=== PATIENT | male | born 1950 | race Caucasian/White ===

== ENCOUNTER 2022-10-29 15:13 | Emergency (ER) | payer MEDICARE, OTHER, SELFPAY ==
--- NOTE | ~2022-10-29 | CT_ITS ---
EXAMINATION: CT HEAD WITHOUT CONTRAST CLINICAL INFORMATION: Right arm weakness. COMPARISON: None available. TECHNIQUE: Contiguous axial imaging was performed from the skull base to vertex without intravenous administration of contrast. This CT examination was performed using dose optimization techniques as appropriate, variously including the following: *Automated exposure control *Adjustment of mA and/or kV according to patient size (this includes techniques or standardized protocols for targeted exams where dose is matched to indication/reason for exam; i.e. extremities or head) *Use of iterative reconstruction technique DLP: 604 mGy-cm FINDINGS: There is no acute intra-axial, extra-axial bleed, masses, collection midline shift. There is no acute infarction evolution. There is no edema. Harper to white matter difference is maintained normal. The lateral ventricles are symmetrical in size and configuration with mild enlargement. Bone windows reveal no calvarial abnormality. There is no scalp soft tissue abnormality. Bilateral paranasal sinuses and mastoid air cells are well-aerated. CT/CT head/brain wo IV con IMPRESSION: No acute intracranial process seen.
--- NOTE | 2022-10-29 15:24 | ED_ITS ---
HPI - Neuro Symptoms/Deficit General Chief Complaint: General Medical Stated Complaint: ? stroke Time Seen by Provider: 10/29/22 17:45 Source: patient Mode of arrival: ambulatory Limitations: no limitations History of Present Illness HPI Narrative: Patient comes to the emergency room complaining of right arm spasming/locking up intermittently for about 5 days. Patient states that all of a sudden his fingers tense up and he cannot flex them. Patient is able to move the rest of the arm. Patient also complaining that lately he has noticed that he is very thirsty, and no matter how much water he takes, he still thirsty. Also urinating more because he has more water intake. Denies any chest pain or shortness of breath. Related Data Previous Rx's Medication Instructions Recorded metformin 500 mg tablet 500 mg PO BID #90 tabs 10/29/22 Allergies Allergy/AdvReac Type Severity Reaction Status Date / Time No Known Allergies Allergy Verified 10/29/22 15:28 Review of Systems Review of Systems: Constitutional : No Weight loss, No Fever, No Chills, No Night Sweats, No Fatigue, No Malaise ENT/Mouth : No Hearing loss, No Ear Pain, No Nasal Congestion, No Sinus Pain, No Hoarseness, No sore throat, No Rhinorrhea, No Swallowing Difficulty Eyes: No Eye Pain, No Swelling, No Redness, No Foreign Body, No Discharge, No Vi janes Changes Cardiovascular : No Chest Pain, No SOB, No Dyspnea on Exertion, No Orthopnea, No Edema, No Palpitations Respiratory : No Cough, No Sputum, No Wheezing, No Smoke Exposure, No Dyspnea Gastrointestinal : No Nausea, No Vomiting, No Diarrhea, No Constipation, No abdominal Pain, No Hematochezia, No Melena Genitourinary : no irregular bleeding, No Dysuria, No Urinary Frequency, No Hematuria, No Urinary Incontinence, No Urgency, No Flank Pain, No Urinary Flow Changes, No Hesitancy Musculoskeletal : Complaining of right fingers/hand locking up/spasming, No Myalgias, No Joint Swelling Skin : No Skin Lesions, No rash Neuro : No Weakness, No Numbness, No Paresthesias, No Loss of Consciousness, No Dizziness, No Headache Psych : No Anxiety/Panic, No Depression, No SI/HI/AH/VH, No Social Issues, Heme/Lymph: No Bruising, No Bleeding,No Lymphadenopathy Endocrine : No Polyuria, No Polydipsia, No Temperature Intolerance [facility] Past Medical History Medical History (Updated 10/29/22 @ 21:39 by Malka Weiner MD) Alcohol abuse Cirrhosis Hypertension Surgical History (Updated 10/29/22 @ 18:32 by Malka Weiner MD) S/P TAVR (transcatheter aortic valve replacement) Social History Social History Advance Directives: No Advance Directives Information Provided: No Physical Exam Vital Signs: Vital Signs: Last Vital Signs Temp 98 F 10/29/22 15:30 Pulse 97 10/29/22 18:01 Resp 16 10/29/22 18:01 BP 181/71 H 10/29/22 18:01 Pulse Ox 97 10/29/22 18:01 O2 Del Method Room Air 10/29/22 18:01 BMI result Body Mass Index 29.8 Const: Other: Appearance: Alert. Oriented X3. No acute distress. Eyes: Pupils equal, round and reactive to light. ENT: Pharynx normal. Neck: Normal inspection. Neck supple. No lymph nodes noted. No crepitus CVS: Normal heart rate and rhythm. Pulses normal. Normal S1 and S2 Respiratory: No respiratory distress. Breath sounds normal. No Wheezing. No rales Abdomen: Soft and nontender. No rigidity. No distention. Skin: Skin warm and dry. Normal skin color. Normal skin turgor. Extremities: No lower extremity edema. No Lacerations. No Rash Neuro: Oriented X 3. No motor deficit. No sensory deficit. Moving all extremities. No slurred speech. CN 2 through 12 grossly intact Psych: calm, cooperative, normal affect Course Course Course Narrative: RME - 72 yo male with history of aortic valve s/p TAVR, HTN, alcoholic cirrhosis (active drinker) who presents to the ER from home for evaluation of recurrent episodes of right arm weakness, stiffness and limited mobility for the last 5 days. 5-6 episodes today. No numbness or tingling. Arm was locked up and stiff transiently in triage, able to abduct during the episode and had equal [employer] strength. +ETOH today. Plan: CT head, lab workup Medications Administered Discontinued Medications Generic Name Dose Route Start Last Admin Trade Name Freq PRN Reason Stop Dose Admin Sodium Chloride 1,000 mls @ 999 mls/hr 10/29/22 18:14 10/29/22 20:00 Ns IVCONT 10/29/22 19:14 Infused .Q1H1M ONE Infusion Magnesium Sulfate/Dextrose 1 gm in 100 mls @ 100 mls/hr 10/29/22 18:15 10/29/22 20:00 Magnesium Sulfate/D5w IV 10/29/22 19:14 Infused ONCE ONE Infusion Insulin Human Regular 10 unit 10/29/22 18:14 10/29/22 18:51 Insulin Regular, Human 100 Unit/Ml 3 Ml Vial IVPUSH 10/29/22 18:15 10 unit ONCE ONE Administration Medical Decision Making Medical Decision Making [facility] Narrative: -NIH score is 0. Given the patient's symptoms, this does not seem like a stroke. -CT scan of the head without contrast does not show any acute abnormality. -patient's magnesium is 1.5. -also, it was noticed that patient's blood glucose is 705. Patient states that he has never been told that he is diabetic. -patient receiving IV fluids, insulin and magnesium. -patient asymptomatic, glucose improved to 305, discussed with the patient that he needs to start metformin and have close follow-up with his PCP. Discussed the GI side effects with the patient. -magnesium improved to 1.8. Is possible the patient may have had cramps secondary to hypomagnesemia. Lab Data [facility] Lab Attestation statement: I reviewed the patient's lab results. 10/29/22 16:09 10/29/22 16:09 Labs: Lab Results 10/29/22 10/29/22 10/29/22 Range/Units 16:09 16:09 16:09 WBC 6.3 (4.8-10.8) X10*3/uL RBC 4.50 L (4.60-5.80) X10*6/uL Hgb 13.3 L (14.0-18.0) g/dl Hct 37.5 L (42.0-52.0) % MCV 83.3 (80.0-98.0) fL MCH 29.6 (27.0-33.0) pg MCHC 35.5 (31.0-36.0) g/dl RDW 12.7 (11.0-16.0) % Plt Count 194 (160-400) X10*3/uL MPV 10.5 (9.4-12.4) fL Immature Gran % (Auto) 0.5 H (0.0-0.4) % Neut % (Auto) 65.3 (45-73) % Lymph % (Auto) 22.9 (20-40) % [place] % (Auto) 7.9 (2-11) % Eos % (Auto) 2.8 (0-4) % Baso % (Auto) 0.6 (0-2) % Lymph # (Auto) 1.5 (1.2-4.9) X10*3/uL [place] # (Auto) 0.5 (0.1-1.2) X10*3/uL Eos # (Auto) 0.2 (0.0-0.4) X10*3/uL Baso # (Auto) 0.0 (0.0-0.2) X10*3/uL Abs Immat Gran (auto) 0.03 (0.00-0.03) X10*3/uL Absolute Neuts (auto) 4.1 (2.0-8.3) x10*3/uL Absolute Nucleated RBC 0.000 (0.0-0.012) X10*3/uL Nucleated RBC % (auto) 0.0 (0.0-0.2) /100WBC PT 9.7 L (10.0-13.1) SEC INR 0.9 (0.9-1.1) APTT 27.4 (26.0-36.4) SEC Sodium 132 L (135-145) mmol/L Potassium 4.8 (3.3-5.1) mmol/L Chloride 97 (96-108) mmol/L Carbon Dioxide 24 (22-29) mmol/L Anion Gap 16 (12-20) BUN 17 H (9-16) mg/dL Creatinine 1.35 (0.5-1.4) mg/dL Estim Creat Clear Calc 53.3 Estimated GFR 52 POC Glucose (60-115) mg/dL Random Glucose 705 H* (60-115) mg/dL Estimat Average Glucose mg/dL Hemoglobin A1c % % Calcium 9.4 (8.4-10.2) mg/dL Magnesium 1.5 L (1.6-2.6) mg/dL Total Bilirubin 0.5 (0.0-1.0) mg/dL Direct Bilirubin 0.1 (0.0-0.5) mg/dL AST 12 (5-37) U/L ALT 15 (0-40) U/L Alkaline Phosphatase 114 (39-117) U/L Total Creatine Kinase 40 (38-174) U/L Total Protein 7.0 (6.5-8.0) g/dL Albumin 3.8 (3.5-5.0) g/dL Urine Color Urine Appearance Urine pH (5.0-9.0) Ur Specific [place] (1.005-1.025) Urine Protein (Neg-Trace) mg/dL Urine Glucose (UA) (Negative) mg/dL Urine Ketones (Negative) mg/dL Urine Blood (Negative) Urine Nitrite (Negative) Ur Leukocyte Esterase (Negative) Urine RBC (0-2) /HPF Urine WBC (0-5) /HPF Ur Squamous Epith Cells (0-2) /HPF Urine Bacteria (None Seen) Hyaline Casts (0-2) /LPF Urine Opiates Screen (Not Detect) Urine Fentanyl Screen (Not Detect) Ur Barbiturates Screen (Not Detect) Ur Phencyclidine Scrn (Not Detect) Ur Amphetamines Screen (Not Detect) U Benzodiazepines Scrn (Not Detect) Urine Cocaine Screen (Not Detect) U Marijuana (THC) Screen (Not Detect) Ethyl Alcohol < 10 mg/dL Acetone, Qual Small H (Negative) 10/29/22 10/29/22 10/29/22 Range/Units 16:09 18:07 18:07 WBC (4.8-10.8) X10*3/uL RBC (4.60-5.80) X10*6/uL Hgb (14.0-18.0) g/dl Hct (42.0-52.0) % MCV (80.0-98.0) fL MCH (27.0-33.0) pg MCHC (31.0-36.0) g/dl RDW (11.0-16.0) % Plt Count (160-400) X10*3/uL MPV (9.4-12.4) fL Immature Gran % (Auto) (0.0-0.4) % Neut % (Auto) (45-73) % Lymph % (Auto) (20-40) % [place] % (Auto) (2-11) % Eos % (Auto) (0-4) % Baso % (Auto) (0-2) % Lymph # (Auto) (1.2-4.9) X10*3/uL [place] # (Auto) (0.1-1.2) X10*3/uL Eos # (Auto) (0.0-0.4) X10*3/uL Baso # (Auto) (0.0-0.2) X10*3/uL Abs Immat Gran (auto) (0.00-0.03) X10*3/uL Absolute Neuts (auto) (2.0-8.3) x10*3/uL Absolute Nucleated RBC (0.0-0.012) X10*3/uL Nucleated RBC % (auto) (0.0-0.2) /100WBC PT (10.0-13.1) SEC INR (0.9-1.1) APTT (26.0-36.4) SEC Sodium (135-145) mmol/L Potassium (3.3-5.1) mmol/L Chloride (96-108) mmol/L Carbon Dioxide (22-29) mmol/L Anion Gap (12-20) BUN (9-16) mg/dL Creatinine (0.5-1.4) mg/dL Estim Creat Clear Calc Estimated GFR POC Glucose (60-115) mg/dL Random Glucose (60-115) mg/dL Estimat Average Glucose 355 mg/dL Hemoglobin A1c % 14.0 % Calcium (8.4-10.2) mg/dL Magnesium (1.6-2.6) mg/dL Total Bilirubin (0.0-1.0) mg/dL Direct Bilirubin (0.0-0.5) mg/dL AST (5-37) U/L ALT (0-40) U/L Alkaline Phosphatase (39-117) U/L Total Creatine Kinase (38-174) U/L Total Protein (6.5-8.0) g/dL Albumin (3.5-5.0) g/dL Urine Color Yellow Urine Appearance Clear Urine pH 6.5 (5.0-9.0) Ur Specific [place] >= 1.030 H (1.005-1.025) Urine Protein Negative (Neg-Trace) mg/dL Urine Glucose (UA) >=1000 H (Negative) mg/dL Urine Ketones 15 (Negative) mg/dL Urine Blood Negative (Negative) Urine Nitrite Negative (Negative) Ur Leukocyte Esterase Negative (Negative) Urine RBC 0-2 (0-2) /HPF Urine WBC 0-5 (0-5) /HPF Ur Squamous Epith Cells 0-2 (0-2) /HPF Urine Bacteria None Seen (None Seen) Hyaline Casts 0-2 (0-2) /LPF Urine Opiates Screen Not Detected (Not Detect) Urine Fentanyl Screen Not Detected (Not Detect) Ur Barbiturates Screen Not Detected (Not Detect) Ur Phencyclidine Scrn Not Detected (Not Detect) Ur Amphetamines Screen Not Detected (Not Detect) U Benzodiazepines Scrn Not Detected (Not Detect) Urine Cocaine Screen Not Detected (Not Detect) U Marijuana (THC) Screen Not Detected (Not Detect) Ethyl Alcohol mg/dL Acetone, Qual (Negative) 10/29/22 10/29/22 10/29/22 Range/Units 19:17 19:51 20:34 WBC (4.8-10.8) X10*3/uL RBC (4.60-5.80) X10*6/uL Hgb (14.0-18.0) g/dl Hct (42.0-52.0) % MCV (80.0-98.0) fL MCH (27.0-33.0) pg MCHC (31.0-36.0) g/dl RDW (11.0-16.0) % Plt Count (160-400) X10*3/uL MPV (9.4-12.4) fL Immature Gran % (Auto) (0.0-0.4) % Neut % (Auto) (45-73) % Lymph % (Auto) (20-40) % [place] % (Auto) (2-11) % Eos % (Auto) (0-4) % Baso % (Auto) (0-2) % Lymph # (Auto) (1.2-4.9) X10*3/uL [place] # (Auto) (0.1-1.2) X10*3/uL Eos # (Auto) (0.0-0.4) X10*3/uL Baso # (Auto) (0.0-0.2) X10*3/uL Abs Immat Gran (auto) (0.00-0.03) X10*3/uL Absolute Neuts (auto) (2.0-8.3) x10*3/uL Absolute Nucleated RBC (0.0-0.012) X10*3/uL Nucleated RBC % (auto) (0.0-0.2) /100WBC PT (10.0-13.1) SEC INR (0.9-1.1) APTT (26.0-36.4) SEC Sodium 136 (135-145) mmol/L Potassium 4.4 (3.3-5.1) mmol/L Chloride 101 (96-108) mmol/L Carbon Dioxide 23 (22-29) mmol/L Anion Gap 16 (12-20) BUN 19 H (9-16) mg/dL Creatinine 1.11 (0.5-1.4) mg/dL Estim Creat Clear Calc 64.9 Estimated GFR > 60 POC Glucose 450 H* 360 H* (60-115) mg/dL Random Glucose 305 H (60-115) mg/dL Estimat Average Glucose mg/dL Hemoglobin A1c % % Calcium 9.5 (8.4-10.2) mg/dL Magnesium 1.8 (1.6-2.6) mg/dL Total Bilirubin (0.0-1.0) mg/dL Direct Bilirubin (0.0-0.5) mg/dL AST (5-37) U/L ALT (0-40) U/L Alkaline Phosphatase (39-117) U/L Total Creatine Kinase (38-174) U/L Total Protein (6.5-8.0) g/dL Albumin (3.5-5.0) g/dL Urine Color Urine Appearance Urine pH (5.0-9.0) Ur Specific [place] (1.005-1.025) Urine Protein (Neg-Trace) mg/dL Urine Glucose (UA) (Negative) mg/dL Urine Ketones (Negative) mg/dL Urine Blood (Negative) Urine Nitrite (Negative) Ur Leukocyte Esterase (Negative) Urine RBC (0-2) /HPF Urine WBC (0-5) /HPF Ur Squamous Epith Cells (0-2) /HPF Urine Bacteria (None Seen) Hyaline Casts (0-2) /LPF Urine Opiates Screen (Not Detect) Urine Fentanyl Screen (Not Detect) Ur Barbiturates Screen (Not Detect) Ur Phencyclidine Scrn (Not Detect) Ur Amphetamines Screen (Not Detect) U Benzodiazepines Scrn (Not Detect) Urine Cocaine Screen (Not Detect) U Marijuana (THC) Screen (Not Detect) Ethyl Alcohol mg/dL Acetone, Qual (Negative) NIH Stroke Scale Level of Consciousness: Alert Level of Consciousness Questions: Answers both questions correctly Level of Consciousness Commands: Performs both tasks correctly Best Gaze: Normal Visual: No visual loss Facial Palsy: Normal Motor Arm (Right): No drift Motor Arm (Left): No drift Motor Leg (Right): No drift Motor Leg (Left): No drift Limb Ataxia: Absent Sensory: Normal Best Language: No aphasia Dysarthia: Normal Extinction and Inattention: No abnormality Score: 0 Discharge Plan Discharge Clinical Impression: Cramp of muscle of right upper extremity, Hypomagnesemia, New onset type 2 diabetes mellitus Patient Disposition: Home, Self-Care Instructions: Type 2 Diabetes in Adults: New Diagnosis (ED), Diabetes and Exercise (ED) Additional Instructions: Your medication was sent to [facility] in [address] [place] [address] in [place]. Your magnesium was corrected. You have new onset diabetes type 2. Please follow-up with your primary care physician tomorrow. If you have any worsening or new symptoms, please return to the emergency room or call 911 Prescriptions: New metformin 500 mg tablet 500 mg PO BID Qty: 90 0RF Rx Instructions: Take 1 tablet of metformin daily for 2 weeks, then increase it to 2 tablets daily
[2022-10-29 15:30] VITALS: BP 177/68; PULSE 100; RESP 19; TEMP 36.6; O2SAT 100; BMI 29.8
[2022-10-29 16:14] LABS: MANUAL DIFF FLAG NO
[2022-10-29 16:15] LABS: Basophils Percent Auto 0.6 % (0-2); Eosinophils Absolute Auto 0.2 X10*3/uL (0.0-0.4); Eosinophils Percent Auto 2.8 % (0-4); Hematocrit 37.5 % (42.0-52.0); Hemoglobin 13.3 g/dl (14.0-18.0); Imm Gran Abs Auto 0.03 X10*3/uL (0.00-0.03); Imm Gran Pct Auto 0.5 % (0.0-0.4); Lymphocytes Absolute Auto 1.5 X10*3/uL (1.2-4.9); Lymphocytes Percent Auto 22.9 % (20-40); Mean Corpuscular HGB Conc 35.5 g/dl (31.0-36.0); Mean Corpuscular Hemoglobin 29.6 pg (27.0-33.0); Mean Corpuscular Volume 83.3 fL (80.0-98.0); Mean Platelet Volume 10.5 fL (9.4-12.4); Monocytes Absolute Auto 0.5 X10*3/uL (0.1-1.2); Monocytes Percent Auto 7.9 % (2-11); Neutrophils Absolute Auto 4.1 x10*3/uL (2.0-8.3); Neutrophils Percent Auto 65.3 % (45-73); Platelet Count 194 X10*3/uL (160-400); Red Cell Distribution Width 12.7 % (11.0-16.0); White Blood Count 6.3 X10*3/uL (4.8-10.8)
[2022-10-29 16:25] LABS: INTERNATIONAL NORM RATIO 0.9 (0.9-1.1); Prothrombin Time 9.7 SEC (10.0-13.1)
[2022-10-29 16:28] LABS: Partial Thromboplastin Time 27.4 SEC (26.0-36.4)
[2022-10-29 16:39] LABS: Alanine Aminotransferase 15 U/L (0-40); Albumin Level 3.8 g/dL (3.5-5.0); Alkaline Phosphatase 114 U/L (39-117); Anion Gap 16 (12-20); Aspartate Amino Transferase 12 U/L (5-37); Bilirubin Direct 0.1 mg/dL (0.0-0.5); Bilirubin Total 0.5 mg/dL (0.0-1.0); Blood Urea Nitrogen 17 mg/dL (9-16); Calcium 9.4 mg/dL (8.4-10.2); Carbon Dioxide 24 mmol/L (22-29); Chloride 97 mmol/L (96-108); Creatinine Clr Calc Pharmacy 53.3; Estimated Glomerular Filt Rate 52; Ethanol < 10 mg/dL; Glucose Random 705 mg/dL (60-115); Magnesium 1.5 mg/dL (1.6-2.6); Potassium 4.8 mmol/L (3.3-5.1); Sodium 132 mmol/L (135-145)
[2022-10-29 17:33] LABS: Estimated Average Glucose 355 mg/dL
[2022-10-29 18:01] VITALS: BP 181/71; PULSE 97; RESP 16; O2SAT 97
[2022-10-29 18:15] LABS: Appearance Urine Clear; Color Urine Yellow; Glucose Urine UA >=1000 mg/dL (Negative); Leukocyte Esterase Urine Negative (Negative); Nitrite Urine Negative (Negative); PH 6.5 (5.0-9.0); Specific Gravity - Urine >= 1.030 (1.005-1.025); UMIC TRIGGER UACC YES; Urine Blood Negative (Negative); Urine Ketones 15 mg/dL (Negative); Urine Protein Negative (Neg-Trace)
[2022-10-29 18:24] LABS: Amphetamine Screen Urine Not Detected (Not Detect); Barbiturates, Urine Not Detected (Not Detect); Benzodiazepines Screen Urine Not Detected (Not Detect); Cannabinoid Screen Urine Not Detected (Not Detect); Cocaine Screen Urine Not Detected (Not Detect); Fentanyl, urine Not Detected (Not Detect); Opiate Screen Urine Not Detected (Not Detect); Phencyclidine Screen Urine Not Detected (Not Detect)
[2022-10-29 18:26] LABS: Bacteria Urine None Seen (None Seen); Hyaline Casts Urine 0-2 /LPF (0-2); RBC Urine 0-2 /HPF (0-2); Squamous Epithelial Cell Urine 0-2 /HPF (0-2); WBC Urine 0-5 /HPF (0-5)
[2022-10-29] MEDS: 0.9 % Sodium Chloride 1,000 ML 999 ML IVCONT (18:33)
[2022-10-29] MEDS: Magnesium Sulfate/D5W 1 GM/100 ML PIGGYBACK IV (18:51)
[2022-10-29] MEDS: Insulin Regular, Human 100 UNIT/ML 3 ML VIAL 10 UNIT IVPUSH (18:51)
[2022-10-29 18:53] LABS: Acetone, serum QL Small (Negative)
--- NOTE | 2022-10-29 19:19 | PC.NURSE ---
this rn assumed care of pt @ 1900. recheck POC of 450. this rn made dr beauchamp aware of poc of 450. per dr beauchamp recheck poc again in 30 minutes
[2022-10-29 19:22] LABS: Glucose, Whole Blood 450 mg/dL (60-115)
[2022-10-29 19:56] LABS: Glucose, Whole Blood 360 mg/dL (60-115)
[2022-10-29 21:08] LABS: Anion Gap 16 (12-20); Blood Urea Nitrogen 19 mg/dL (9-16); Calcium 9.5 mg/dL (8.4-10.2); Carbon Dioxide 23 mmol/L (22-29); Chloride 101 mmol/L (96-108); Creatinine Clr Calc Pharmacy 64.9; Estimated Glomerular Filt Rate > 60; Glucose Random 305 mg/dL (60-115); Magnesium 1.8 mg/dL (1.6-2.6); Potassium 4.4 mmol/L (3.3-5.1); Sodium 136 mmol/L (135-145)
[2022-10-29 22:01] VITALS: BP 174/79; PULSE 84; RESP 20; TEMP 37.2; O2SAT 97
== END 2022-10-29 22:02 | disposition home or self-care (01) ==
PROVIDERS: Physician Assistant; Emergency Provider Emergency Medicine; PCP Family Medicine
DX: M62.838 Other muscle spasm (principal); E83.42 Hypomagnesemia; E11.9 Type 2 diabetes mellitus without complications; I10 Essential (primary) hypertension; K70.30 Alcoholic cirrhosis of liver without ascites; F10.10 Alcohol abuse, uncomplicated; Y90.0 Blood alcohol level of less than 20 mg/100 ml
CPT/HCPCS: 36415; 70450; 80048; 80076; 80307; 81001; 82009; 82550; 82947; 83036; 83735; 85025; 85610; 85730; 96361; 96374; 96375; 99284; J3475

== ENCOUNTER 2022-10-31 20:34 | Emergency (ER) | payer MEDICARE, OTHER, SELFPAY ==
--- NOTE | 2022-10-31 | ECG_ITS ---
Test Reason : CHEST PAIN Blood Pressure : / mmHG Vent. Rate : 072 BPM Atrial Rate : 072 BPM P-R Int : 180 ms QRS Dur : 090 ms QT Int : 398 ms P-R-T Axes : 000 006 038 degrees QTc Int : 435 ms Normal sinus rhythm Normal ECG No previous ECGs available Referred By: Generic ED Physician Electronically Signed By:KENNY STEWARD MD
[2022-10-31 21:32] VITALS: BP 169/65; PULSE 79; RESP 16; TEMP 36.1; O2SAT 95; BMI 28.3
[2022-10-31 22:00] VITALS: O2SAT 100
[2022-10-31 22:07] LABS: Basophils Absolute Auto 0.1 X10*3/uL (0.0-0.2); Basophils Percent Auto 0.9 % (0-2); Eosinophils Absolute Auto 0.2 X10*3/uL (0.0-0.4); Eosinophils Percent Auto 2.6 % (0-4); Hematocrit 35.6 % (42.0-52.0); Hemoglobin 12.7 g/dl (14.0-18.0); Imm Gran Abs Auto 0.03 X10*3/uL (0.00-0.03); Imm Gran Pct Auto 0.4 % (0.0-0.4); Lymphocytes Absolute Auto 1.9 X10*3/uL (1.2-4.9); Lymphocytes Percent Auto 27.3 % (20-40); MANUAL DIFF FLAG NO; Mean Corpuscular HGB Conc 35.7 g/dl (31.0-36.0); Mean Corpuscular Hemoglobin 29.5 pg (27.0-33.0); Mean Corpuscular Volume 82.6 fL (80.0-98.0); Mean Platelet Volume 10.4 fL (9.4-12.4); Monocytes Absolute Auto 0.6 X10*3/uL (0.1-1.2); Monocytes Percent Auto 8.5 % (2-11); Neutrophils Absolute Auto 4.2 x10*3/uL (2.0-8.3); Neutrophils Percent Auto 60.3 % (45-73); Platelet Count 169 X10*3/uL (160-400); Red Blood Count 4.31 X10*6/uL (4.60-5.80); Red Cell Distribution Width 12.7 % (11.0-16.0)
[2022-10-31 22:40] LABS: Anion Gap 15 (12-20); Blood Urea Nitrogen 17 mg/dL (9-16); Calcium 9.3 mg/dL (8.4-10.2); Carbon Dioxide 25 mmol/L (22-29); Chloride 93 mmol/L (96-108); Creatinine Clr Calc Pharmacy 56.3; Estimated Glomerular Filt Rate 57; Glucose Random 574 mg/dL (60-115); Potassium 4.4 mmol/L (3.3-5.1); Sodium 129 mmol/L (135-145)
--- NOTE | 2022-10-31 23:13 | ED.GENADULT ---
HPI - General Adult General Chief complaint: General Medical Stated complaint: muscle pain right hand Time Seen by Provider: 10/31/22 23:10 Source: patient Mode of arrival: ambulatory Limitations: no limitations History of Present Illness HPI narrative: Patient newly diagnosed diabetes seen here on 10/29 for cramping in the right arm noted to have blood sugar of 705 started metformin patient comes here that is still having the cramping pain in the right forearm patient has CT scan of the head was done which was negative patient noted to be drinking Pedialyte today blood sugar on arrival was 574 no nausea no vomiting no abdominal pain no fever or chills Related Data Previous Rx's Medication Instructions Recorded metformin 500 mg tablet 500 mg PO BID #90 tabs 10/29/22 Allergies Allergy/AdvReac Type Severity Reaction Status Date / Time Seasonal Allergies Allergy Runny Nose Verified 10/31/22 21:38 Review of Systems Review of Systems: Yes all other systems are reviewed and are negative [facility] Past Medical History Medical History (Updated 11/01/22 @ 01:42 by Anirudh Gray MD) Alcohol abuse Cirrhosis Diabetes mellitus Hypertension Surgical History S/P TAVR (transcatheter aortic valve replacement) Social History Social History Alcohol intake: former Smoked in Last 30 Days: No Use of substances other than those prescribed or required for medical reasons: No Any prior treatment program specific to substance use: No Advance Directives: No Advance Directives Information Provided: No Physical Exam ED Vital Signs: Vital Signs - 24 hr 10/31/22 21:32 10/31/22 22:00 Temperature 97 F Pulse Rate 79 Respiratory Rate 16 Blood Pressure 169/65 H Pulse Oximetry 95 100 Oxygen Delivery Method Room Air Room Air BMI result Body Mass Index 28.3 Appearance: Alert. Oriented X3. No acute distress. Eyes: No pallor or icterus ENT: Pharynx normal. Oral Mucosa moist Neck: Normal inspection. Neck supple. CVS: Normal heart rate and rhythm. Pulses normal. Respiratory: No respiratory distress. Equal air entry bilateral, no wheezing/rales/rhonchi Abdomen: Soft and nontender. Bowel sounds are present, no mass palpable, no CVA tenderness Skin: Skin warm and dry. Normal skin color. Normal skin turgor. Extremities: No lower extremity edema. 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 No motor deficit. No sensory deficit.No cerebellar signs , cranial nerves II-XII intact Medications Administered Discontinued Medications Generic Name Dose Route Start Last Admin Trade Name Freq PRN Reason Stop Dose Admin Sodium Chloride 1,000 mls @ 999 mls/hr 10/31/22 23:18 10/31/22 23:33 Ns IV 11/01/22 00:18 999 mls/hr .Q1H1M ONE Administration Insulin Glargine 20 unit 10/31/22 23:35 11/01/22 00:12 Insulin Glargine,Hum.Rec.Anlog 100 Unit/Ml 10 Ml Vial SUBCUT 10/31/22 23:36 20 unit ONCE ONE Administration Insulin Human Lispro 10 unit 10/31/22 23:35 11/01/22 00:12 Insulin Lispro 100 Unit/Ml 3 Ml Vial SUBCUT 10/31/22 23:36 10 unit ONCE ONE Administration Medical Decision Making Medical Decision Making [facility] Narrative: Patient new onset diabetic noncompliant plan to see PCP tomorrow and plan to have diabetic teaching. Patient advised not to drink high carbohydrate drinks was given insulin blood sugar improved also noted to have low magnesium which was replaced Lab Data [facility] Lab Attestation statement: I reviewed the patient's lab results. 10/31/22 22:02 10/31/22 22:02 Labs: Lab Results 10/31/22 10/31/22 10/31/22 Range/Units 22:02 22:02 23:27 WBC 7.0 (4.8-10.8) X10*3/uL RBC 4.31 L (4.60-5.80) X10*6/uL Hgb 12.7 L (14.0-18.0) g/dl Hct 35.6 L (42.0-52.0) % MCV 82.6 (80.0-98.0) fL MCH 29.5 (27.0-33.0) pg MCHC 35.7 (31.0-36.0) g/dl RDW 12.7 (11.0-16.0) % Plt Count 169 (160-400) X10*3/uL MPV 10.4 (9.4-12.4) fL Immature Gran % (Auto) 0.4 (0.0-0.4) % Neut % (Auto) 60.3 (45-73) % Lymph % (Auto) 27.3 (20-40) % [place] % (Auto) 8.5 (2-11) % Eos % (Auto) 2.6 (0-4) % Baso % (Auto) 0.9 (0-2) % Lymph # (Auto) 1.9 (1.2-4.9) X10*3/uL [place] # (Auto) 0.6 (0.1-1.2) X10*3/uL Eos # (Auto) 0.2 (0.0-0.4) X10*3/uL Baso # (Auto) 0.1 (0.0-0.2) X10*3/uL Abs Immat Gran (auto) 0.03 (0.00-0.03) X10*3/uL Absolute Neuts (auto) 4.2 (2.0-8.3) x10*3/uL Absolute Nucleated RBC 0.000 (0.0-0.012) X10*3/uL Nucleated RBC % (auto) 0.0 (0.0-0.2) /100WBC Sodium 129 L (135-145) mmol/L Potassium 4.4 (3.3-5.1) mmol/L Chloride 93 L (96-108) mmol/L Carbon Dioxide 25 (22-29) mmol/L Anion Gap 15 (12-20) BUN 17 H (9-16) mg/dL Creatinine 1.25 (0.5-1.4) mg/dL Estim Creat Clear Calc 56.3 Estimated GFR 57 POC Glucose 484 H* (60-115) mg/dL Random Glucose 574 H* (60-115) mg/dL Calcium 9.3 (8.4-10.2) mg/dL Magnesium 1.4 L* (1.6-2.6) mg/dL Discharge Plan Discharge Clinical Impression: Hyperglycemia Prescriptions: No Action metformin 500 mg tablet 500 mg PO BID Qty: 90 0RF Rx Instructions: Take 1 tablet of metformin daily for 2 weeks, then increase it to 2 tablets daily
[2022-10-31] MEDS: 0.9 % Sodium Chloride 1,000 ML 999 ML IV (23:33)
[2022-10-31 23:40] LABS: Glucose, Whole Blood 484 mg/dL (60-115)
[2022-10-31 23:54] LABS: Magnesium 1.4 mg/dL (1.6-2.6)
[2022-11-01] VITALS: BP 148/78; PULSE 89; RESP 16; TEMP 37; O2SAT 100
[2022-11-01] MEDS: Insulin Lispro 100 UNIT/ML 3 ML VIAL 10 UNIT SUBCUT (00:12)
[2022-11-01] MEDS: Insulin Glargine,Hum.rec.anlog 100 UNIT/ML 10 ML VIAL 20 UNIT SUBCUT (00:12)
[2022-11-01] MEDS: Insulin Lispro 100 UNIT/ML 3 ML VIAL 8 UNIT SUBCUT (01:51)
[2022-11-01] MEDS: Magnesium Sulfate/H2O 2 GM/50 ML PIGGYBACK IV (01:52)
[2022-11-01 02:00] VITALS: BP 148/79; PULSE 85; RESP 16; O2SAT 100
[2022-11-01 02:11] VITALS: BP 139/79; PULSE 80; RESP 16; O2SAT 100
[2022-11-01 02:58] LABS: Glucose, Whole Blood 178 mg/dL (60-115)
[2022-11-01 02:58] LABS: Glucose, Whole Blood 350 mg/dL (60-115)
[2022-11-01 04:00] VITALS: BP 129/78; PULSE 76; RESP 18; TEMP 37; O2SAT 100
[2022-11-01 04:51] VITALS: BP 125/54; PULSE 50; TEMP 36.4; O2SAT 91
[2022-11-01 06:50] VITALS: BP 158/66; PULSE 68; RESP 16; TEMP 36.4; O2SAT 96
[2022-11-01 06:55] LABS: Glucose, Whole Blood 102 mg/dL (60-115)
[2022-11-01 07:58] LABS: Hemoglobin A1c % > 14.0 %
== END 2022-11-01 08:21 | disposition home or self-care (01) ==
PROVIDERS: Emergency Provider Internal Medicine; PCP Family Medicine
DX: R07.89 Other chest pain (principal); E11.65 Type 2 diabetes mellitus with hyperglycemia; Z79.84 Long term (current) use of oral hypoglycemic drugs; Z79.899 Other long term (current) drug therapy
CPT/HCPCS: 36415; 80048; 82947; 83036; 83735; 85025; 93005; 96361; 96365; 99284; 99285; J3475

== ENCOUNTER 2025-05-02 17:42 | Emergency (ER) | payer MEDICARE, OTHER, SELFPAY ==
--- NOTE | ~2025-05-02 | US_ITS ---
CLINICAL HISTORY: pain and swelling US Scrotum with Doppler Comparison: None provided Findings: Right testicle normal echotexture, 3.7 x 2.5 x 3.4 cm. Left testicle normal echotexture, 4.7 x 2.4 x 2.9 cm. Normal color flow and arterial/venous spectral tracing of both testicles. Normal epididymides. No varicoceles. No hydroceles. IMPRESSION: No acute abnormality. No evidence of torsion. This document has been electronically signed by: Cesia Bran MD on 05/02/2025 19:29:29
--- NOTE | 2025-05-02 17:51 | ED.GENADULT ---
HPI - General Adult General Chief complaint: Urogenital-Male Stated complaint: Back Pain Time Seen by Provider: 05/02/25 22:13 Source: patient Limitations: no limitations History of Present Illness ED Provider: Cristiane Suh PA-C HPI narrative: 75-year-old male with a history of alcohol use disorder, cirrhosis, hypertension and diabetes, presents with bilateral testicle pain x1 year. Over the past week, his symptoms have worsened, unable to describe the nature of his discomfort. Associated dysuria, denies penile discharge, hematuria, history of kidney stones, nausea, vomiting, risk for STD. Denies swelling or redness of the testicles. Related Data Previous Rx's ?Medication ?Instructions ?Recorded metformin 500 mg tablet 500 mg PO BID #90 tabs 10/29/22 blood-glucose meter #1 ea 11/01/22 glipizide 5 mg tablet 5 mg PO DAILY #30 tabs 11/01/22 cephalexin 500 mg capsule 500 mg PO Q12H #13 caps 05/02/25 Allergies Allergy/AdvReac Type Severity Reaction Status Date / Time Seasonal Allergies Allergy Runny Nose Verified 05/02/25 17:54 Review of Systems Review of Systems: Yes all other systems are reviewed and are negative Constitutional: Constitutional: Denies fatigue and Denies fever(s) Cardiovascular: Cardiovascular: Denies chest pain and Denies dyspnea Respiratory: Respiratory: Denies dyspnea Gastrointestinal: Gastrointestinal: Denies abdominal pain, Denies nausea and Denies vomiting Genitourinary: Genitourinary: Denies hematuria, Reports oliguria, Reports dysuria, Denies flank pain, Denies penile discharge and Reports testicular pain Musculoskeletal: Musculoskeletal: Denies back pain Endocrine: Endocrine: Denies fatigue [facility] Past Medical History Attestation statement: The following information was validated with the patient. Medical History Diabetes mellitus Cirrhosis Hypertension Alcohol abuse Surgical History S/P TAVR (transcatheter aortic valve replacement) Social History Social History Alcohol intake: former Advance Directives: No Advance Directives Information Provided: Yes Do you have a plan to hurt others: No Plan Physical Exam ED Vital Signs: Vital Signs - 24 hr 05/02/25 17:52 05/02/25 22:18 Temperature 98 F Pulse Rate 96 93 Respiratory Rate 18 16 Blood Pressure 193/82 H 177/84 H Pulse Oximetry 98 97 Oxygen Delivery Method Room Air BMI result Body Mass Index 27.6 Const Other: Alert well-appearing Orientation/consciousness: patient oriented x3 Resp Effort & Inspection: normal respiratory effort Cardio Other: Normal peripheral perfusion GI Other: Soft nontender no guarding no distention Other: Normal external genitalia, the testicles are not swollen they are not erythematous, there was no penile discharge, there were no lesions Skin Other: Warm dry no rash Neuro General: patient oriented x3, gait normal, no focal motor deficits and CN's II-XI intact bilaterally Psych Other: Cooperative Course Course Course Narrative: This is a rapid medical exam performed by Fish Hines NP: Additional HPI, ROS, PE not included below will be deferred to primary provider. Patient is a 75y/o male with history of alcohol use disorder presenting with complaint of testicular pain for over a year, recently worsened last week. Last drink half hour ago. Plan: UA, labs, U/S Medical Decision Making Medical Decision Making MDM Narrative: 75-year-old male with a history of alcohol use disorder, cirrhosis, hypertension and diabetes, presents with bilateral testicle pain x1 year. Over the past week, his symptoms have worsened, unable to describe the nature of his discomfort. Associated dysuria, denies penile discharge, hematuria, history of kidney stones, nausea, vomiting, risk for STD. Denies swelling or redness of the testicles. Problem: Alcohol use disorder, diabetes, cirrhosis History: Per patient I have considered the following differential diagnoses: Torsion, epididymitis, orchitis, urethritis, UTI, varicocele, hydrocele , renal colic, pyelonephritis Plan: Screening labs including a scrotal ultrasound ordered from triage, everything is unremarkable, his urine is pending. The patient has no abdominal pain or back pain to suggest renal colic versus pyelonephritis, additional imaging not warranted. I have independently reviewed the following tests: Labs: No leukocytosis, not anemic, no electrolyte abnormality, urine appears infected, ethanol less than 10 Ultrasound scrotal contents:Findings: Right testicle normal echotexture, 3.7 x 2.5 x 3.4 cm. Left testicle normal echotexture, 4.7 x 2.4 x 2.9 cm. Normal color flow and arterial/venous spectral tracing of both testicles. Normal epididymides. No varicoceles. No hydroceles. IMPRESSION: No acute abnormality. No evidence of torsion. Differential Diagnosis Differential Diagnoses: The differential diagnosis associated with the presentation includes See [facility] Admission/Observation Consideration of admission/observation: Escalation of care including admission/observation considered Not applicable Lab Data [facility] Lab Attestation statement: I reviewed the patient's lab results. 05/02/25 18:53 05/02/25 18:53 Labs: Lab Results 05/02/25 05/02/25 Range/Units 18:53 22:34 WBC 7.5 (4.8-10.8) X10*3/uL RBC 4.30 L (4.60-5.80) X10*6/uL Hgb 13.9 L (14.0-18.0) g/dl Hct 39.2 L (42.0-52.0) % MCV 91.2 (80.0-98.0) fL MCH 32.3 (27.0-33.0) pg MCHC 35.5 (31.0-36.0) g/dl RDW 13.2 (11.0-16.0) % Plt Count 167 (160-400) X10*3/uL MPV 9.9 (9.4-12.4) fL Immature Gran % (Auto) 0.4 (0.0-0.4) % Neut % (Auto) 62.5 (45-73) % Lymph % (Auto) 22.3 (20-40) % [place] % (Auto) 10.9 (2-11) % Eos % (Auto) 3.2 (0-4) % Baso % (Auto) 0.7 (0-2) % Lymph # (Auto) 1.7 (1.2-4.9) X10*3/uL [place] # (Auto) 0.8 (0.1-1.2) X10*3/uL Eos # (Auto) 0.2 (0.0-0.4) X10*3/uL Baso # (Auto) 0.1 (0.0-0.2) X10*3/uL Abs Immat Gran (auto) 0.03 (0.00-0.03) X10*3/uL Absolute Neuts (auto) 4.7 (2.0-8.3) x10*3/uL Absolute Nucleated RBC 0.000 (0.0-0.012) X10*3/uL Nucleated RBC % (auto) 0.0 (0.0-0.2) /100WBC Sodium 137 (135-145) mmol/L Potassium 4.2 (3.3-5.1) mmol/L Chloride 102 (96-108) mmol/L Carbon Dioxide 24 (22-29) mmol/L Anion Gap 15 (12-20) BUN 6 L (9-16) mg/dL Creatinine 0.89 (0.5-1.4) mg/dL Estim Creat Clear Calc 74.9 Estimated GFR > 60 Random Glucose 91 (60-115) mg/dL Calcium 9.5 (8.4-10.2) mg/dL Total Bilirubin 0.6 (0.0-1.0) mg/dL AST 43 H (5-37) U/L ALT 43 H (0-40) U/L Alkaline Phosphatase 92 (39-117) U/L Total Protein 7.4 (6.5-8.0) g/dL Albumin 4.6 (3.5-5.0) g/dL Urine Color Yellow Urine Appearance Turbid Urine pH 6.5 (5.0-9.0) Ur Specific [place] <= 1.005 (1.005-1.025) Urine Protein Trace (Neg-Trace) mg/dL Urine Glucose (UA) Negative (Negative) mg/dL Urine Ketones Negative (Negative) mg/dL Urine Blood Trace H (Negative) Urine Nitrite Negative (Negative) Ur Leukocyte Esterase Large (3+) H (Negative) Urine RBC 0-2 (0-2) /HPF Urine WBC >50 H (0-5) /HPF Ur Squamous Epith Cells 0-2 (0-2) /HPF Urine Bacteria 2+ (None Seen) Hyaline Casts 0-2 (0-2) /LPF Ethyl Alcohol < 10 mg/dL Radiology Impression Discussion of test interpretation with radiology: I have reviewed the radiologist's reading. Discharge Plan Discharge Clinical Impression: Urinary tract infection Qualifiers: Urinary tract infection type: acute cystitis Hematuria presence: without hematuria Qualified Code(s): N30.00 - Acute cystitis without hematuria Patient Disposition: Home, Self-Care Instructions: Urinary Tract Infection in Men (ED) Additional Instructions: You were found to have a urinary tract infection, the rest of your labs were normal. There were no acute abnormalities on the ultrasound of your scrotum. Take the cephalexin as directed, complete the course of this antibiotic. Be sure to follow up with your primary care provider for a reassessment. Prescriptions: New cephalexin 500 mg capsule 500 mg PO Q12H Qty: 13 0RF No Action metformin 500 mg tablet 500 mg PO BID Qty: 90 0RF Rx Instructions: Take 1 tablet of metformin daily for 2 weeks, then increase it to 2 tablets daily glipizide 5 mg tablet 5 mg PO DAILY Qty: 30 0RF (DME) blood-glucose meter Kit See Rx Instructions .Route Qty: 1 0RF Rx Instructions: As directed Print Language: Croatian
[2025-05-02 17:52] VITALS: BP 193/82; PULSE 96; RESP 18; TEMP 36.6; O2SAT 98; BMI 27.6
--- NOTE | 2025-05-02 17:55 | PC.NURSE ---
louis [phone]
[2025-05-02 19:02] LABS: MANUAL DIFF FLAG NO
[2025-05-02 19:12] LABS: Hematocrit 39.2 % (42.0-52.0); Hemoglobin 13.9 g/dl (14.0-18.0); Imm Gran Pct Auto 0.4 % (0.0-0.4); Mean Corpuscular HGB Conc 35.5 g/dl (31.0-36.0); Mean Corpuscular Hemoglobin 32.3 pg (27.0-33.0); Mean Corpuscular Volume 91.2 fL (80.0-98.0); NRBC Pct Auto 0.0 /100WBC (0.0-0.2); Platelet Count 167 X10*3/uL (160-400); Red Blood Count 4.30 X10*6/uL (4.60-5.80); White Blood Count 7.5 X10*3/uL (4.8-10.8)
[2025-05-02 19:13] LABS: Imm Gran Abs Auto 0.03 X10*3/uL (0.00-0.03); Lymphocytes Absolute Auto 1.7 X10*3/uL (1.2-4.9); NRBC Abs Auto 0.000 X10*3/uL (0.0-0.012)
[2025-05-02 19:31] LABS: Alanine Aminotransferase 43 U/L (0-40); Albumin Level 4.6 g/dL (3.5-5.0); Alkaline Phosphatase 92 U/L (39-117); Anion Gap 15 (12-20); Aspartate Amino Transferase 43 U/L (5-37); Blood Urea Nitrogen 6 mg/dL (9-16); Calcium 9.5 mg/dL (8.4-10.2); Carbon Dioxide 24 mmol/L (22-29); Chloride 102 mmol/L (96-108); Creatinine Clr Calc Pharmacy 74.9; Estimated Glomerular Filt Rate > 60; Potassium 4.2 mmol/L (3.3-5.1); Sodium 137 mmol/L (135-145); Total Protein 7.4 g/dL (6.5-8.0)
[2025-05-02 22:18] VITALS: BP 177/84; PULSE 93; RESP 16; O2SAT 97
[2025-05-02 22:44] LABS: Appearance Urine Turbid; Glucose Urine UA Negative (Negative); PH 6.5 (5.0-9.0); Specific Gravity - Urine <= 1.005 (1.005-1.025); UMIC TRIGGER UACC YES
[2025-05-02 22:46] LABS: UACC Culture Trigger YES
[2025-05-02 23:15] VITALS: BP 177/84; PULSE 93; RESP 16; TEMP 36.7; O2SAT 97
[2025-05-03 00:10] LABS: CT PCR Urine NOT DETECTED (Not Detect.); NG PCR Urine NOT DETECTED (Not Detect.)
== END 2025-05-02 23:16 | disposition home or self-care (01) ==
PROVIDERS: Physician Assistant Medical; Registered Nurse Emergency; Emergency Provider Emergency Medicine; PCP Family Medicine
DX: N30.00 Acute cystitis without hematuria (principal); I10 Essential (primary) hypertension; E11.9 Type 2 diabetes mellitus without complications
CPT/HCPCS: 36415; 76870; 80053; 80307; 81001; 85025; 87086; 87491; 87591; 93975; 99283; 99284

== ENCOUNTER → 2025-05-02 17:55 | Outpatient (BNV) | payer MEDICARE, OTHER, SELFPAY | PROVIDERS: PCP Family Medicine; Visit Provider Student in an Organized Health Care Education/Training Program | DX: N50.82 Scrotal pain (principal); N50.89 Other specified disorders of the male genital organs | CPT/HCPCS: 76870; 93975 ==

== ENCOUNTER 2025-05-04 19:03 | Emergency (ER) | payer MEDICARE, OTHER, SELFPAY ==
--- NOTE | ~2025-05-04 | CT_ITS ---
CLINICAL HISTORY: flank hip pain. kidney stones. hip fracture? CT of the abdomen and pelvis without intravenous contrast. No comparison provided. Findings: There is fatty infiltration of the liver. The liver is also lobulated. The gallbladder is unremarkable. There are small bilateral renal stones. No ureteral stones are identified and there is no hydronephrosis. There are several small hyperdense renal nodules which statistically are likely hyperdense cysts. The spleen is enlarged. The pancreas is unremarkable. No abdominal aortic aneurysm. There is a prosthetic aortic valve. No diverticulitis is identified. Normal appendix. There is no bowel obstruction. Small umbilical hernia. Mild mesenteric edema likely incidental. There is moderate bladder dilatation with mild nonspecific diffuse bladder wall thickening. No free fluid in the pelvis. No acute fractures are seen. Impression: Small renal stones. No ureteral stones or hydronephrosis. Moderate bladder dilatation. Mild wall thickening of the bladder is nonspecific but can be seen with chronic outlet obstruction. Additional findings as above. This document has been electronically signed by: Willian Baez MD on 05/04/2025 20:58:13
--- NOTE | ~2025-05-04 | US_ITS ---
CLINICAL HISTORY: scrotal pain Scrotal ultrasound. Comparison 05/02/2025. Findings: The testicles are normal in size and echogenicity. No testicular masses are seen. Doppler evaluation demonstrates testicular blood flow bilaterally. No abnormality of the epididymis is seen. There are small bilateral hydroceles. Impression: Normal testicles. Small bilateral hydroceles. This document has been electronically signed by: Willian Baez MD on 05/04/2025 21:04:59
--- NOTE | ~2025-05-04 | CT_ITS ---
CLINICAL HISTORY: Fall CT of the head without contrast. Comparison 10/29/2024. Findings: There is mild atrophy and white matter changes. No acute hemorrhage or infarct is seen. No masses are identified and there is no hydrocephalus. There is no mass-effect. Impression: No acute intracranial abnormality is identified. This document has been electronically signed by: Willian Baez MD on 05/04/2025 21:02:43
--- NOTE | ~2025-05-04 | CT_ITS ---
CLINICAL HISTORY: fall CT of the cervical spine without contrast. No comparison provided. Findings: No acute fractures are seen. There are advanced degenerative changes. Mild malalignment is likely degenerative in nature. There is multilevel spinal and foraminal stenosis. Impression: No acute fractures are identified. This document has been electronically signed by: Willian Baez MD on 05/04/2025 21:00:06
[2025-05-04 19:28] VITALS: BP 169/79; PULSE 85; RESP 16; TEMP 37; O2SAT 97; BMI 26.6
--- NOTE | 2025-05-04 19:34 | ED.GENADULT ---
[facility] - General Adult General Chief complaint: Fall Stated complaint: lower extremity pain, Incontinence Time Seen by Provider: 05/04/25 23:12 History of Present Illness ED Provider: Yola WHITNEY narrative: The patient is a 75-year-old male who was brought to the hospital today by his brother. The patient lives in [place]. He lives by himself. He apparently has a history of alcohol use disorder, hypertension, and type 2 diabetes. His primary care doctor is Dr. Mcgovern. He comes to the emergency department today complaining of pain in his testicles that he says has been bothering him for a long time. He says that he has had pain in his testicles for a year and a half. He is also complaining of pain that he says feels like a pinched a nerve in his left lower back and which radiates down the left leg to the foot. The patient was here 2 days ago on May 02. At that time he was complaining of bilateral testicular pain and may have had some associated urinary symptoms. He had an unremarkable scrotal ultrasound. He has a urinalysis potentially consistent with a UTI. He was thought to possibly have acute cystitis and was placed on cephalexin 500 mg b.i.d.. The patient returns today because he does not feel that he is getting better on the cephalexin. He is still having the pain radiating down his left leg. He says the pain is worse with movements. He lies flat he feels better. He has had no fever. He denies any discomfort with urination. He says he does not urinate a great deal. No fever, sweats, chills. Related Data Previous Rx's ?Medication ?Instructions ?Recorded metformin 500 mg tablet 500 mg PO BID #90 tabs 10/29/22 blood-glucose meter #1 ea 11/01/22 glipizide 5 mg tablet 5 mg PO DAILY #30 tabs 11/01/22 cephalexin 500 mg capsule 500 mg PO Q12H #13 caps 05/02/25 cyclobenzaprine 5 mg tablet 5 mg PO TID PRN muscle spasm #20 05/05/25 tabs tamsulosin 0.4 mg capsule 0.4 mg PO BEDTIME #30 caps 05/05/25 Allergies Allergy/AdvReac Type Severity Reaction Status Date / Time Seasonal Allergies Allergy Runny Nose Verified 05/06/25 12:38 Review of Systems Review of Systems: Yes all other systems are reviewed and are negative [facility] Past Medical History Medical History Diabetes mellitus Cirrhosis Hypertension Alcohol abuse Surgical History S/P TAVR (transcatheter aortic valve replacement) Social History Social History Alcohol intake: former Do you have a plan to hurt others: No Plan Physical Exam ED Vital Signs: Vital Signs - 24 hr 05/04/25 19:28 05/05/25 01:24 Temperature 98.6 F 98.6 F Pulse Rate 85 90 Respiratory Rate 16 18 Blood Pressure 169/79 H 165/70 H Pulse Oximetry 97 97 Oxygen Delivery Method Room Air BMI result Body Mass Index 26.6 Const Other: The patient is a 75-year-old man who was awake and alert. He does not appear in overt distress. HENMT Other: The face is symmetrical. ?Mucous membranes moist. Eyes Other: Pupils are round equal, conjunctivae are clear, extraocular movements intact Neck Neck: Yes normal visual inspection and Yes full ROM Resp Effort & Inspection: normal respiratory effort Auscultation: clear to auscultation bilaterally Cardio Rate: regular rate Rhythm: regular rhythm Heart sounds: S1 normal heart sound present and S2 normal heart sound present GI Other: Abdomen is soft and nontender Other: The patient is a circumcised male with unremarkable external genitalia. Scrotal contents are nontender and non swollen. Skin of the scrotum is normal. Skin Other: The skin is dry and unremarkable General skin exam: no rashes or lesions noted Neuro Other: The patient is awake and alert. He is very pleasant but he seems very vague. He seems to have a poor memory. Cranial nerves however seem intact and he has normal function of all of his extremities. He has 2+ reflexes at the knees and ankles. He seems neurologically intact but I think he probably has some underlying mild chronic cognitive issues. Extrem Other: No peripheral edema. He moves all the joints of his lower extremities normally. He may have a slightly positive straight leg raise test on the left side (the symptomatic side). He has a negative contralateral straight leg raise test. Course Course Course Narrative: RmE: 72 year male presents to ED for testicular pain, left hip pain. Patient states he fell but had pain before fall onto left hip. Labs UA ultrasound ordered Medications Administered Discontinued Medications Generic Name Dose Route Start Last Admin Trade Name Jose Guadalupe PRN Reason Stop Dose Admin Lidocaine HCl 10 ml 05/05/25 00:27 05/05/25 00:44 Lidocaine Hcl 2 % Urojet 10 Ml Jel.Pf.Luis Miguel TOPICAL 05/05/25 00:28 10 ml ONCE ONE Administration Medical Decision Making Medical Decision Making [facility] Narrative: The patient is a 75-year-old male who was a very vague historian and probably has some mild chronic cognitive disorder. He complains of long-term bilateral testicular pain and more acute left lower back pain that sounds as if it might be some degree of sciatica. He seems to have a large bladder on a CAT scan that was ordered at triage. A bladder scan showed a bladder volume of 485. Postvoid residual was about 380. Findings on the CT scan suggested that his urinary retention is probably chronic and I suspect that he probably has some degree of prostatism. The patient was urinary catheter. His bladder was drained. He said that he felt a great deal of relief, possibly from his sense of testicular discomfort. However he did not wish to keep the catheter in place. My impression was that it would probably be reasonable to remove the catheter. The patient seems to be very vague and I believe he has some probably chronic cognitive issues related to prior alcohol use. 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 Therefore we ultimately agreed that we would discharge him without a catheter but start him on tamsulosin and have him follow up with Urology. Afterwards the patient was up and walking around and said that the left-sided pain radiating to him to his left foot had returned. I suspect the patient probably has some degree of sciatica although he does not seem in overt discomfort. He is advised to use acetaminophen. Therefore the patient was ultimately felt to have some left-sided sciatica and also some degree of urinary retention but not complete urinary retention (merely a fairly large postvoid residual of about 380mL). He was discharged with a prescription for tamsulosin to be started tomorrow evening and also advised to use acetaminophen for his pain. He should follow up with both his PCP and Urology. Lab Data 05/04/25 19:39 05/04/25 19:39 Labs: Lab Results 05/04/25 05/04/25 Range/Units 19:39 23:55 WBC 8.4 (4.8-10.8) X10*3/uL RBC 4.37 L (4.60-5.80) X10*6/uL Hgb 14.0 (14.0-18.0) g/dl Hct 40.0 L (42.0-52.0) % MCV 91.5 (80.0-98.0) fL MCH 32.0 (27.0-33.0) pg MCHC 35.0 (31.0-36.0) g/dl RDW 12.9 (11.0-16.0) % Plt Count 164 (160-400) X10*3/uL MPV 9.9 (9.4-12.4) fL Immature Gran % (Auto) 0.5 H (0.0-0.4) % Neut % (Auto) 66.2 (45-73) % Lymph % (Auto) 19.4 L (20-40) % [place] % (Auto) 11.0 (2-11) % Eos % (Auto) 2.3 (0-4) % Baso % (Auto) 0.6 (0-2) % Lymph # (Auto) 1.6 (1.2-4.9) X10*3/uL [place] # (Auto) 0.9 (0.1-1.2) X10*3/uL Eos # (Auto) 0.2 (0.0-0.4) X10*3/uL Baso # (Auto) 0.1 (0.0-0.2) X10*3/uL Abs Immat Gran (auto) 0.04 H (0.00-0.03) X10*3/uL Absolute Neuts (auto) 5.5 (2.0-8.3) x10*3/uL Absolute Nucleated RBC 0.000 (0.0-0.012) X10*3/uL Nucleated RBC % (auto) 0.0 (0.0-0.2) /100WBC Sodium 135 (135-145) mmol/L Potassium 4.2 (3.3-5.1) mmol/L Chloride 100 (96-108) mmol/L Carbon Dioxide 23 (22-29) mmol/L Anion Gap 16 (12-20) BUN 12 (9-16) mg/dL Creatinine 1.06 (0.5-1.4) mg/dL Estim Creat Clear Calc 58.0 Estimated GFR > 60 Random Glucose 104 (60-115) mg/dL Calcium 9.7 (8.4-10.2) mg/dL Total Bilirubin 0.8 (0.0-1.0) mg/dL AST 39 H (5-37) U/L ALT 39 (0-40) U/L Alkaline Phosphatase 89 (39-117) U/L Total Protein 7.5 (6.5-8.0) g/dL Albumin 4.8 (3.5-5.0) g/dL Urine Color Yellow Urine Appearance Clear Urine pH 6.5 (5.0-9.0) Ur Specific [place] 1.010 (1.005-1.025) Urine Protein Trace (Neg-Trace) mg/dL Urine Glucose (UA) Negative (Negative) mg/dL Urine Ketones Trace (Negative) mg/dL Urine Blood Negative (Negative) Urine Nitrite Negative (Negative) Ur Leukocyte Esterase Moderate (2+) H (Negative) Urine RBC 0-2 (0-2) /HPF Urine WBC 11-20 H (0-5) /HPF Ur Squamous Epith Cells 0-2 (0-2) /HPF Urine Bacteria None Seen (None Seen) Hyaline Casts 0-2 (0-2) /LPF Ethyl Alcohol < 10 mg/dL Discharge Plan Discharge Clinical Impression: Urinary retention, Left sided sciatica, Pain in both testicles Patient Disposition: Home, Self-Care Additional Instructions: I think that some of the pain in your back and in your testicles that you has been experiencing may be related to having had a very full bladder. You seemed to get somewhat better when we drained your bladder with a catheter. I have sent a prescription for a medication called tamsulosin to your pharmacy. This medication is intended to help you with bladder emptying. Please start taking this medication in the evening after you pick it up in the morning. This medication is usually taken at bedtime. It is taken once a day. I think you should see a urologist. A urologist as a doctor who specializes in managing urine flow. Please call the urology office for a follow up appointment soon. Also follow up with your regular doctor. For general discomfort use acetaminophen (Tylenol). Return to the emergency room if significantly worse. Prescriptions: New tamsulosin 0.4 mg capsule 0.4 mg PO BEDTIME Qty: 30 0RF No Action metformin 500 mg tablet 500 mg PO BID Qty: 90 0RF Rx Instructions: Take 1 tablet of metformin daily for 2 weeks, then increase it to 2 tablets daily glipizide 5 mg tablet 5 mg PO DAILY Qty: 30 0RF (DME) blood-glucose meter Kit See Rx Instructions .Route Qty: 1 0RF Rx Instructions: As directed cephalexin 500 mg capsule 500 mg PO Q12H Qty: 13 0RF cyclobenzaprine 5 mg tablet 5 mg PO TID PRN (Reason: muscle spasm) Qty: 20 0RF Referrals: [facility] [Provider Group, Urology] Andre Mcgovern MD [Physician, Internal Medicine] Interventions: ED Discharge Assessment Last Done: 05/05/25 01:24 Discharge Date/Time: 05/05/25 01:25 Print Language: Azeri
[2025-05-04 20:10] LABS: MANUAL DIFF FLAG NO
[2025-05-04 20:13] LABS: Hematocrit 40.0 % (42.0-52.0); Hemoglobin 14.0 g/dl (14.0-18.0); Imm Gran Abs Auto 0.04 X10*3/uL (0.00-0.03); Imm Gran Pct Auto 0.5 % (0.0-0.4); Lymphocytes Absolute Auto 1.6 X10*3/uL (1.2-4.9); Mean Corpuscular HGB Conc 35.0 g/dl (31.0-36.0); Mean Corpuscular Hemoglobin 32.0 pg (27.0-33.0); Mean Corpuscular Volume 91.5 fL (80.0-98.0); NRBC Abs Auto 0.000 X10*3/uL (0.0-0.012); NRBC Pct Auto 0.0 /100WBC (0.0-0.2); Platelet Count 164 X10*3/uL (160-400); Red Blood Count 4.37 X10*6/uL (4.60-5.80); White Blood Count 8.4 X10*3/uL (4.8-10.8)
[2025-05-04 20:27] LABS: Alanine Aminotransferase 39 U/L (0-40); Albumin Level 4.8 g/dL (3.5-5.0); Alkaline Phosphatase 89 U/L (39-117); Anion Gap 16 (12-20); Aspartate Amino Transferase 39 U/L (5-37); Blood Urea Nitrogen 12 mg/dL (9-16); Calcium 9.7 mg/dL (8.4-10.2); Carbon Dioxide 23 mmol/L (22-29); Chloride 100 mmol/L (96-108); Creatinine Clr Calc Pharmacy 58.0; Estimated Glomerular Filt Rate > 60; Potassium 4.2 mmol/L (3.3-5.1); Sodium 135 mmol/L (135-145); Total Protein 7.5 g/dL (6.5-8.0)
--- NOTE | 2025-05-04 23:07 | MHC.EDTECH ---
call brothalok Denson for kate @d/c. # in chart
[2025-05-05 00:01] LABS: Appearance Urine Clear; Glucose Urine UA Negative (Negative); PH 6.5 (5.0-9.0); Specific Gravity - Urine 1.010 (1.005-1.025); UMIC TRIGGER UACC YES
[2025-05-05 00:06] LABS: UACC Culture Trigger YES
--- NOTE | 2025-05-05 00:10 | PC.NURSE ---
Pts PVR 381ml, states he'd pee alot better if my leg wasnt bothering me
--- NOTE | 2025-05-05 00:13 | PC.NURSE ---
Pt attempting to urinate once more. plan for additional bladder scan afterward for PVR.
--- NOTE | 2025-05-05 00:26 | PC.NURSE ---
PVR 344ml plan for diaz catheter
--- NOTE | 2025-05-05 00:41 | PC.NURSE ---
16 Fr diaz inserted per sterile technique. Approximately 325 ml yellow urine output noted at this time.
[2025-05-05] MEDS: Lidocaine HCl 2 % Urojet 10 ML JEL.PF.APP TOPICAL (00:44)
--- NOTE | 2025-05-05 00:58 | PC.NURSE ---
Pt does not diaz catheter to remain in place. Catheter removed at this time for plans for patient to follow up outpatient with urology and start flomax.
[2025-05-05 01:24] VITALS: BP 165/70; PULSE 90; RESP 18; TEMP 37; O2SAT 97
== END 2025-05-05 01:25 | disposition home or self-care (01) ==
PROVIDERS: Physician Assistant; Emergency Provider Emergency Medicine
DX: R33.9 Retention of urine, unspecified (principal); M54.32 Sciatica, left side; N50.812 Left testicular pain; N50.811 Right testicular pain; G31.84 Mild cognitive impairment of uncertain or unknown etiology; I10 Essential (primary) hypertension; E11.9 Type 2 diabetes mellitus without complications; Z79.899 Other long term (current) drug therapy; Z91.81 History of falling
CPT/HCPCS: 36415; 51798; 70450; 72125; 74176; 76870; 80053; 80307; 81001; 81003; 85025; 87086; 93975; 99284; 99285

== ENCOUNTER → 2025-05-04 19:32 | Outpatient (BNV) | payer MEDICARE, OTHER, SELFPAY | PROVIDERS: Visit Provider Radiology Diagnostic Radiology | DX: N43.3 Hydrocele, unspecified (principal) | CPT/HCPCS: 76870 ==

== ENCOUNTER 2025-05-05 07:54 | Emergency (ER) | payer MEDICARE, OTHER, SELFPAY ==
--- NOTE | ~2025-05-05 | XR_ITS ---
EXAMINATION: XR LUMBAR SPINE 2-3 VIEWS HISTORY: Low back pain, rad down L leg COMPARISON: There are no prior studies for comparison. FINDINGS: AP, lateral, and coned down views of the lumbar spine are submitted. Osseous mineralization is normal. There is mild rightward curvature. The vertebral bodies maintain normal height without evidence of fracture or spondylolisthesis. There is moderate degenerative disc disease at the L4-5 and L5-S1 levels with disc space narrowing and osteophyte formation. Milder changes are noted at the remaining levels. The posterior elements are intact. There is calcification of the abdominal aorta. XR/XR lumbar spine 2-3V IMPRESSION: Mild rightward curvature. Degenerative disc disease as described. Electronically signed by: Ramsey Campbell MD 05/05/2025 08:51 AM [facility]
[2025-05-05 07:56] VITALS: BP 157/70; PULSE 90; RESP 16; TEMP 36.5; O2SAT 97; BMI 26.9
--- NOTE | 2025-05-05 08:33 | ED_ITS ---
HPI - Back Pain/Injury General Chief Complaint: Back Pain/Injury Stated Complaint: back pain Time Seen by Provider: 05/05/25 08:10 Source: patient and family (brother, Jarett) Mode of arrival: ambulatory Limitations: no limitations History of Present Illness ED Provider: GABY ORTEGA PA-C HPI Narrative: 75 year old male with pmhx significant for DM, HTN, alcohol use disorder, cirrhosis presents to the ED today for evaluation of lower back pain x6 months. Patient states the pain begins in his lower back, radiates down his left buttock and down his LLE. Denies numbness/tingling/weakness of the LLE. Denies fever, chills, saddle anesthesia, bowel or bladder incontinence. Denies hx spinal surgery or IVDU. Of note, presented to our facility 3 days ago (05/02/25) for evaluation of pradeep ateral testicular pain and urinary symptoms. He was diagnosed with a UTI and started on Keflex. He has been taking this as prescribed. He presented to our facility for a second time yesterday, complaining of testicular pain x1 year along with a new complaint of left lower back pain. He was noted to have a degree of urinary retention, had diaz placed with reported relief of discomfort. He did not wish to keep the catheter in place and thus this was removed. He was discharged home with Tamsulosin. He has not picked this up from the pharmacy. He presents today with continued lower back pain. He states he has not recieved anything for this pain. Related Data Previous Rx's ?Medication ?Instructions ?Recorded metformin 500 mg tablet 500 mg PO BID #90 tabs 10/29 blood-glucose meter #1 ea 11/01/22 glipizide 5 mg tablet 5 mg PO DAILY #30 tabs 11/01 cephalexin 500 mg capsule 500 mg PO Q12H #13 caps 06/26 cyclobenzaprine 5 mg tablet 5 mg PO TID PRN muscle spa sm #20 05/05/25 tabs tamsulosin 0.4 mg capsule 0.4 mg PO BEDTIME #30 caps 1 07/06/24 Allergies Allergy/AdvReac Type Severity Reaction Status Date / Time Seasonal Allergies Allergy Runny Nose Verified 05/06/25 12:38 Review of Systems Review of Systems: Yes all other systems are reviewed and are negative PMFSH Past Medical History Attestation statement: The following information was validated with the patient. Source: old records reviewed and nursing notes reviewed Medical History Diabetes mellitus Cirrhosis Hypertension Alcohol abuse Surgical History S/P TAVR (transcatheter aortic valve replacement) Social History Social History Alcohol intake: former Advance Directives: Yes Advance Directives Information Provided: No Advance Directives on File: No Do you have a plan to hurt others: No Plan Physical Exam Vital Signs: Vital Signs: Last Vital Signs Temp 0 F L 05/05/25 17:00 Pulse 70 05/05/25 17:00 Resp 18 05/05/25 17:00 BP 157/70 H 05/05/25 17:00 Pulse Ox 96 05/05/25 17:00 O2 Del Method Room Air 05/05/25 17:00 BMI result Body Mass Index 26.9 hypertensive, vitals are otherwise wnl General: NAD, well appearing. Skin: Warm, dry, intact. No rashes or lesions. Head: Normocephalic, atraumatic. EENT: Hearing is intact b/l. Conjunctiva clear. PERRLA. EOM intact. Moist mucous membranes.? Cardiac: Chest wall symmetric. RRR Lungs: Normal respiratory effort without accessory muscle use. CTA bilaterally Abdomen: Soft, non-tender, non-distended. No rebound tenderness or guarding. Positive BS x4. no cvat. no palpable bladder. Back: +no midline spinous tenderness or step-off. There is reproducible tenderness to left paraspinal musculature. no palpable spasm. positive straight leg raise on left. Ext: Upper and lower extremities atraumatic, without tenderness, deformity, swelling or erythema. Full ROM throughout Neuro: AOx3. Normal speech. Strength 4/5 intact throughout. No saddle anesthesia. Sensation intact to light touch. NV intact distally. 2+ patellar DTRs. Ambulating with steady gait. Course Course Course Narrative: CBC without leukocytosis or left shift. h&h stable. chemistry without acute electrolyte abnormality requiring intervention. liver function wnl. urine without infection. Bladder scan showing 334, post void residual 327. It appears that he is retaining urine, likely secondary to BPH. He was prescribed flomax yesterday - never picked this prescription up from the pharmacy. He also had a diaz catheter placed yesterday however did not wish to go home with catheter in place and thus this was removed prior to discharge. Urinary Retention: Patient has had 2 scrotal ultrasounds in the past 3 days. They have both been unremarkable other than small bilateral hydroceles. CT abdomen obtained yesterday showing small renal stones, no obstructing ureteral stones, moderate bladder dilatation and mild wall thickening of the bladder, seen with chronic outlet obstruction. I discussed management with urologist dr. goodwin - recommending diaz placement + flomax with outpatient urology follow up. Diaz catheter placed in the ED today. Patient has been educated on how to drain his leg bag. I discussed management with his brother Jarett at bedside who cares for patient. I have also discussed case with PRIYA Post who will be setting up VNA services for patient. Advised to continue flomax at home and follow up with urology - referral provided. Lumbar back pain: Regarding his back pain, he he been treated with toradol + lido patch with mild improvement. xr lumbar spine shows mild rightward curvature, DDD, no acute compression fractures. He has lumbar radiculopathy. I do not have concern for cauda equina. He has been up and ambulating with steady gait, there is no saddle anesthesia, b/l patellar DTRs intact. Will trial flexeril. Sign out given to Gregory CARCAMO pending pain control and re-evaluation. If patient continues to endorse back pain, he may require further PT/CM consultations. Reevaluation(s) Reevaluation #1: Patient received in sign-out at change of shift pending re-evaluation of back pain after Flexeril. The patient received his Flexeril and request to be discharged with a prescription for the same. At this time he feels safe being discharged home with VNA services. Time: 17:20 Medications Administered Discontinued Medications Generic Name Dose Route Start Last Admin Trade Name Freq PRN Reason Stop Dose Admin Cyclobenzaprine HCl 5 mg 05/05/25 17:08 05/05/25 17:16 Cyclobenzaprine Hcl 5 Mg Tablet PO 05/05/25 17:09 5 mg ONCE ONE Administration Ketorolac Tromethamine 30 mg 05/05/25 08:31 05/05/25 08:53 Ketorolac Tromethamine 30 Mg/Ml Vial IM 05/05/25 08:32 30 mg ONCE ONE Administration Lidocaine 1 patch 05/05/25 08:31 05/05/25 08:54 Lidocaine 4 % Patch Adh..Patch TRANSDERMA 05/05/25 08:32 1 patch ONCE ONE Administration Protocol Medical Decision Making Medical Decision Making MDM Narrative: 75 year old male with pmhx significant for DM, HTN, alcohol use disorder, cirrhosis presents to the ED today for evaluation of lower back pain x6 months. Patient is hypertensive, afebrile. His exam is benign. Differential diagnosis includes BPH, urinary retention, bladder outlet obstruction, UTI, lumbar back pain, MSK sprain/strain, lumbar radiculopathy, compression fracture, muscle spasm. Low suspicion for cauda equina, cord compression. Plan for xrs, bladder scan, pain control, and re-evaluation. Differential Diagnosis Differential Diagnoses: The differential diagnosis associated with the presentation includes as above. Admission/Observation not indicated. Consult Healthcare Provider Management of the patient was discussed with: Polymer Scientist (urology- dr. goodwin) Independent Interpretation I performed an independent interpretation of an: Plain X-Ray Interpretation: xr lumbar spine without compression fracture Radiology Impression Discussion of test interpretation with radiology: I have reviewed the radiologist's reading. Radiologist Impression: Procedure(s): XR lumbar spine 2-3V Accession Number(s): [id number] cc: Andre Mcgovern MD; Gaby Ortega~ Reason for Exam: Low back pain, rad down L leg EXAMINATION: XR LUMBAR SPINE 2-3 VIEWS HISTORY: Low back pain, rad down L leg COMPARISON: There are no prior studies for comparison. FINDINGS: AP, lateral, and coned down views of the lumbar spine are submitted. Osseous mineralization is normal. There is mild rightward curvature. The vertebral bodies maintain normal height without evidence of fracture or spondylolisthesis. There is moderate degenerative disc disease at the L4-5 and L5-S1 levels with disc space narrowing and osteophyte formation. Milder changes are noted at the remaining levels. The posterior elements are intact. There is calcification of the abdominal aorta. XR/XR lumbar spine 2-3V IMPRESSION: Mild rightward curvature. Degenerative disc disease as described. Electronically signed by: Ramsey Campbell MD 05/05/2025 08:51 AM [facility] External Record Review External record reviewed: Inpatient record Prescription Management I considered prescription management with: Pain Medication Social Determinants Patient?s care significantly limited by Social Determinants of Health including: Other Social Determinant of Health Critical Care Time Critical Care Time Critical Care Time: No Discharge Plan Discharge Clinical Impression: Urinary retention, Left lumbar radiculopathy Patient Disposition: Home, Self-Care Instructions: Diaz Catheter Care, Urinary Retention in Men (ED) Additional Instructions: Your work up today is reassuring. It seems that you are retaining urine, likely due to an enlarged prostate. We have placed a diaz catheter today. This needs to stay in place until you are able to follow up with urology. You have been provided with a referral. CALL THEIR OFFICE TO SCHEDULE AN APPOINTMENT. THEY WILL NOT CALL YOU. Please take flomax as directed. A prescription was sent to your pharmacy yesterday. Case management will be contacting you to set up a visiting nurse to help with your diaz. Regarding your back pain, take tylenol/motrin at home as needed. I am also sending lidocaine patches to your pharmacy. Apply these to painful areas. Return with any new/worsening symptoms. In the case of an emergency call 911. Prescriptions: New cyclobenzaprine 5 mg tablet 5 mg PO TID PRN (Reason: muscle spasm) Qty: 20 0RF No Action metformin 500 mg tablet 500 mg PO BID Qty: 90 0RF Rx Instructions: Take 1 tablet of metformin daily for 2 weeks, then increase it to 2 tablets daily glipizide 5 mg tablet 5 mg PO DAILY Qty: 30 0RF ([facility]) blood-glucose meter Kit See Rx Instructions .Route Qty: 1 0RF Rx Instructions: As directed cephalexin 500 mg capsule 500 mg PO Q12H Qty: 13 0RF tamsulosin 0.4 mg capsule 0.4 mg PO BEDTIME Qty: 30 0RF Referrals: [facility] [Provider Group, Urology] Referral Note: urinary retention, diaz in place Andre Mcgovern MD [Primary Care Provider, Internal Medicine] Interventions: ED Discharge Assessment Last Done: 05/05/25 17:00 Discharge Date/Time: 05/05/25 17:25 Print Language: Turkmen
[2025-05-05] MEDS: Lidocaine 4 % Patch ADH..PATCH 1 PATCH TRANSDERMA (08:54)
--- NOTE | 2025-05-05 08:57 | PC.NURSE ---
pt medicated for 8 back pain
[2025-05-05 11:09] VITALS: BP 144/66; PULSE 68; RESP 18; O2SAT 96
--- NOTE | 2025-05-05 11:31 | PC.NURSE ---
18f diaz cath inserted/pt tolerated well, output of 300.
--- NOTE | 2025-05-05 13:15 | PC.NURSE ---
pt a&ox2, pt had diaz cath teaching performed by this nurse. Pt was shown step by step how to empty his catheter, pt was then asked to return demonstrate. During the return demonstration the patient got easily frustrated and upset stating I cant do this and threw the cath bag down onto his lap. This nurse encouraged the patient multiple times to practice which he did with alot of assistance from this nurse. Again, pt became frustrated. Family at bedside stated he feels he will not be able to care for this as he isnt understanding how to empty the diaz on his own, family stated generally they go to the patients home daily just to check in but they will be out of town for about a week and is unable to empty the diaz for him. The patient is upset over a cat he cares for stating the cat will attack the diaz bag as well. Two other tech also attempted to teach the patient how to empty the bag, he was able to do so with them at bedside but was having a difficult time remembering the steps without their cues and had a difficult time opening the clamps to empty it. Provider notified of this.
[2025-05-05 16:07] VITALS: BP 157/70; PULSE 70; RESP 18; O2SAT 96
[2025-05-05 17:00] VITALS: BP 157/70; PULSE 70; RESP 18; TEMP -17.7; TEMP 0; O2SAT 96
--- NOTE | 2025-05-05 17:24 | PC.NURSE ---
pt was being discharged, began to complain of pain as he stood to walk, family requested medication for the pain, provider notified- muscle relaxer was ordered and given for pain and script was sent to pharmacy, family willing to bring patient home with the script.
--- NOTE | 2025-05-05 19:20 | MHC.CM.ED ---
Pt was discharged home. Referred to [facility] for [facility]. New F/C with urinary retention. Contact is his brother, Jarett ([phone]).
== END 2025-05-05 17:25 | disposition home or self-care (01) ==
PROVIDERS: Emergency Provider Emergency Medicine; PCP Family Medicine
DX: R33.9 Retention of urine, unspecified (principal); M54.16 Radiculopathy, lumbar region; K70.30 Alcoholic cirrhosis of liver without ascites; E11.9 Type 2 diabetes mellitus without complications; I10 Essential (primary) hypertension
CPT/HCPCS: 51702; 51798; 72100; 96372; 99285; J1885

== ENCOUNTER → 2025-05-05 08:31 | Outpatient (BNV) | payer MEDICARE, OTHER, SELFPAY | PROVIDERS: Emergency Provider Emergency Medicine; PCP Family Medicine; Visit Provider Radiology Diagnostic Radiology | DX: M51.360 Other intervertebral disc degeneration, lumbar region with discogenic back pain only (principal); M41.86 Other forms of scoliosis, lumbar region | CPT/HCPCS: 72100 ==

== ENCOUNTER 2025-05-06 12:23 | Emergency (ER) | payer MEDICARE, OTHER, SELFPAY ==
[2025-05-06 12:33] VITALS: BP 135/93; PULSE 95; RESP 15; TEMP 36.7; O2SAT 97; BMI 26.5
--- NOTE | 2025-05-06 12:34 | ED.GENADULT ---
HPI - General Adult General Chief complaint: Urogenital-Male Stated complaint: catheter change Time Seen by Provider: 05/06/25 17:03 Source: patient Mode of arrival: ambulatory Limitations: no limitations History of Present Illness ED Provider: Dr. Castro [facility] narrative: 75-year-old male history of urinary retention with a chronic Diaz catheter placed. Patient has had this removed yesterday. There was asked any caught on something. In the Diaz catheter came out. Patient was able to urinate some however he feels like he is not emptying his bladder completely. Denies any dysuria. He did have blood come out of his penis briefly. However this has resolved. He stated that the source of his urinary retention is his enlarged prostate. Related Data Previous Rx's ?Medication ?Instructions ?Recorded metformin 500 mg tablet 500 mg PO BID #90 tabs 10/29/22 blood-glucose meter #1 ea 11/01/22 glipizide 5 mg tablet 5 mg PO DAILY #30 tabs 11/01/22 cephalexin 500 mg capsule 500 mg PO Q12H #13 caps 05/02/25 cyclobenzaprine 5 mg tablet 5 mg PO TID PRN muscle spasm #20 05/05/25 tabs tamsulosin 0.4 mg capsule 0.4 mg PO BEDTIME #30 caps 05/05/25 Allergies Allergy/AdvReac Type Severity Reaction Status Date / Time Seasonal Allergies Allergy Runny Nose Verified 05/06/25 12:38 Review of Systems Review of Systems: Pertinent review of systems as mentioned in HPI. All other system otherwise negative. [facility] Past Medical History [facility] Narrative: Medical history as mentioned in [facility] Medical History Diabetes mellitus Cirrhosis Hypertension Alcohol abuse Surgical History S/P TAVR (transcatheter aortic valve replacement) Social History Social History Alcohol intake: former Advance Directives: Yes Advance Directives Information Provided: No Advance Directives on File: No Do you have a plan to hurt others: No Plan Physical Exam ED Exam Exam: General: Pleasant, no distress, interacting appropriately Head: Normacephalic, atraumatic Gastrointestinal: Soft, non distended, non tender, non guarding : No signs of bleeding from the penis. Neurological: Awake and alert, no facial droop noted Skin: Warm and dry Psychiatric: Appropriate mood and thoughts Vital Signs: Vital Signs - 24 hr 05/06/25 12:33 05/06/25 17:45 05/06/25 19:27 Temperature 98.1 F 98.4 F Pulse Rate 95 82 100 Respiratory Rate 15 18 18 Blood Pressure 135/93 H 176/72 H 182/85 H Pulse Oximetry 97 97 98 Oxygen Delivery Method Room Air Room Air Room Air BMI result Body Mass Index 26.5 Course Course Course Narrative: Rapid medical examination performed in triage by Mary Gao PA-C: Patient is a 75 year old assigned male at presenting to the emergency department with urinary retention after he accidentally removed his diaz catheter. Detailed physical exam and review of systems are deferred to the primary health care nurse. Patient placed back in the waiting room pending room availability. Medications Administered Discontinued Medications Generic Name Dose Route Start Last Admin Trade Name Freq PRN Reason Stop Dose Admin Lidocaine HCl 10 ml 05/06/25 17:32 05/06/25 19:27 Lidocaine Hcl 2 % Urojet 10 Ml Jel.Pf.Luis Miguel TOPICAL 05/06/25 17:33 10 ml ONCE ONE Administration Medical Decision Making Medical Decision Making [facility] Narrative: This is a 75-year-old male history of chronic urinary retention with a chronic Diaz catheter presented hospital today for evaluation of dislodged Diaz catheter. We will plan to replace his Diaz catheter at this time. I did perform a bedside ultrasound. No signs of Diaz catheter balloon in the bladder however there is some signs of thickening of the bladder wall. We will send a UA to test for signs of UTI. Differential Diagnosis Differential Diagnoses: The differential diagnosis associated with the presentation includes Urinary retention, dislodged Diaz catheter, cystitis, UTI Lab Data 05/06/25 14:23 05/06/25 14:23 Labs: Lab Results 05/06/25 05/06/25 Range/Units 14:23 20:47 WBC 8.1 (4.8-10.8) X10*3/uL RBC 4.35 L (4.60-5.80) X10*6/uL Hgb 14.0 (14.0-18.0) g/dl Hct 38.4 L (42.0-52.0) % MCV 88.3 (80.0-98.0) fL MCH 32.2 (27.0-33.0) pg MCHC 36.5 H (31.0-36.0) g/dl RDW 12.7 (11.0-16.0) % Plt Count 149 L (160-400) X10*3/uL MPV 9.6 (9.4-12.4) fL Immature Gran % (Auto) 0.5 H (0.0-0.4) % Neut % (Auto) 73.4 H (45-73) % Lymph % (Auto) 13.3 L (20-40) % Morrison % (Auto) 10.9 (2-11) % Eos % (Auto) 1.5 (0-4) % Baso % (Auto) 0.4 (0-2) % Lymph # (Auto) 1.1 L (1.2-4.9) X10*3/uL Morrison # (Auto) 0.9 (0.1-1.2) X10*3/uL Eos # (Auto) 0.1 (0.0-0.4) X10*3/uL Baso # (Auto) 0.0 (0.0-0.2) X10*3/uL Abs Immat Gran (auto) 0.04 H (0.00-0.03) X10*3/uL Absolute Neuts (auto) 5.9 (2.0-8.3) x10*3/uL Absolute Nucleated RBC 0.000 (0.0-0.012) X10*3/uL Nucleated RBC % (auto) 0.0 (0.0-0.2) /100WBC Sodium 133 L (135-145) mmol/L Potassium 4.3 (3.3-5.1) mmol/L Chloride 100 (96-108) mmol/L Carbon Dioxide 24 (22-29) mmol/L Anion Gap 13 (12-20) BUN 17 H (9-16) mg/dL Creatinine 0.90 (0.5-1.4) mg/dL Estim Creat Clear Calc 70.7 Estimated GFR > 60 Random Glucose 104 (60-115) mg/dL Calcium 9.3 (8.4-10.2) mg/dL Urine Color [place] A Urine Appearance Cloudy Urine pH 5.5 (5.0-9.0) Ur Specific [place] 1.010 (1.005-1.025) Urine Protein 100 (2+) H (Neg-Trace) mg/dL Urine Glucose (UA) Negative (Negative) mg/dL Urine Ketones 15 (Negative) mg/dL Urine Blood Large (3+) H (Negative) Urine Nitrite Negative (Negative) Ur Leukocyte Esterase Trace H (Negative) Urine RBC >20 H (0-2) /HPF Urine WBC 6-10 H (0-5) /HPF Ur Squamous Epith Cells 3-5 (0-2) /HPF Urine Bacteria None Seen (None Seen) Hyaline Casts 0-2 (0-2) /LPF Discharge Plan Discharge Clinical Impression: Complication of Diaz catheter Qualifiers: Encounter type: initial encounter Qualified Code(s): T83.9XXA - Unspecified complication of genitourinary prosthetic device, implant and graft, initial encounter Patient Disposition: Home, Self-Care Prescriptions: No Action metformin 500 mg tablet 500 mg PO BID Qty: 90 0RF Rx Instructions: Take 1 tablet of metformin daily for 2 weeks, then increase it to 2 tablets daily glipizide 5 mg tablet 5 mg PO DAILY Qty: 30 0RF (DME) blood-glucose meter Kit See Rx Instructions .Route Qty: 1 0RF Rx Instructions: As directed cephalexin 500 mg capsule 500 mg PO Q12H Qty: 13 0RF tamsulosin 0.4 mg capsule 0.4 mg PO BEDTIME Qty: 30 0RF cyclobenzaprine 5 mg tablet 5 mg PO TID PRN (Reason: muscle spasm) Qty: 20 0RF Referrals: [facility] [Provider Group, Urology] Print Language: Zimbabwean
[2025-05-06 14:28] LABS: MANUAL DIFF FLAG NO
[2025-05-06 14:29] LABS: Hematocrit 38.4 % (42.0-52.0); Hemoglobin 14.0 g/dl (14.0-18.0); Imm Gran Abs Auto 0.04 X10*3/uL (0.00-0.03); Imm Gran Pct Auto 0.5 % (0.0-0.4); Lymphocytes Absolute Auto 1.1 X10*3/uL (1.2-4.9); Mean Corpuscular HGB Conc 36.5 g/dl (31.0-36.0); Mean Corpuscular Hemoglobin 32.2 pg (27.0-33.0); Mean Corpuscular Volume 88.3 fL (80.0-98.0); NRBC Abs Auto 0.000 X10*3/uL (0.0-0.012); NRBC Pct Auto 0.0 /100WBC (0.0-0.2); Platelet Count 149 X10*3/uL (160-400); Red Blood Count 4.35 X10*6/uL (4.60-5.80); White Blood Count 8.1 X10*3/uL (4.8-10.8)
[2025-05-06 14:41] LABS: Anion Gap 13 (12-20); Blood Urea Nitrogen 17 mg/dL (9-16); Calcium 9.3 mg/dL (8.4-10.2); Carbon Dioxide 24 mmol/L (22-29); Chloride 100 mmol/L (96-108); Creatinine Clr Calc Pharmacy 70.7; Estimated Glomerular Filt Rate > 60; Potassium 4.3 mmol/L (3.3-5.1); Sodium 133 mmol/L (135-145)
[2025-05-06 17:45] VITALS: BP 176/72; PULSE 82; RESP 18; TEMP 36.9; O2SAT 97
[2025-05-06 19:27] VITALS: BP 182/85; PULSE 100; RESP 18; O2SAT 98
[2025-05-06] MEDS: Lidocaine HCl 2 % Urojet 10 ML JEL.PF.APP TOPICAL (19:27)
--- NOTE | 2025-05-06 19:33 | MHC.CM.ED ---
HCP completed per pt request. Reviewed, completed and signed. Brothers, Neo and Julius named HCP. Copies given. Uploaded into [employer] and [employer]. Pt requests that no information be given to his daughter. Primary RN aware.
--- NOTE | 2025-05-06 20:48 | MHC.EDTECH ---
Emptied pts diaz bag. He had 700mL
[2025-05-06 21:02] LABS: Appearance Urine Cloudy; Glucose Urine UA Negative (Negative); PH 5.5 (5.0-9.0); Specific Gravity - Urine 1.010 (1.005-1.025); UACC Culture Trigger YES; UMIC TRIGGER UACC YES
[2025-05-06 21:21] VITALS: BP 164/88; PULSE 85; RESP 18; TEMP 36.7; O2SAT 98
--- NOTE | 2025-05-06 21:46 | PC.NURSE ---
catheter education done with pt and brother. pt demonstrated how to empty with instructions
[2025-05-06 21:47] VITALS: BP 164/88; PULSE 85; RESP 18; TEMP 36.7; O2SAT 98
== END 2025-05-06 21:47 | disposition home or self-care (01) ==
PROVIDERS: Emergency Medicine; Emergency Provider Student in an Organized Health Care Education/Training Program; PCP Family Medicine
DX: R31.9 Hematuria, unspecified (principal); R33.9 Retention of urine, unspecified; T83.091A Other mechanical complication of indwelling urethral catheter, initial encounter; Y73.2 Prosthetic and other implants, materials and accessory gastroenterology and urology devices associated with adverse incidents; Y92.9 Unspecified place or not applicable; Z79.899 Other long term (current) drug therapy
CPT/HCPCS: 36415; 51701; 51798; 80048; 81001; 81003; 85025; 87086; 99284

== ENCOUNTER 2025-05-08 17:46 | Emergency (ER) | payer MEDICARE, OTHER, SELFPAY ==
--- NOTE | ~2025-05-08 | CT_ITS ---
EXAMINATION: CT HEAD WITHOUT CONTRAST CLINICAL INFORMATION: hallucinating COMPARISON: May 04, 2025 TECHNIQUE: Contiguous axial imaging was performed from the skull base to vertex without intravenous administration of contrast. This CT examination was performed using dose optimization techniques as appropriate, variously including the following: *Automated exposure control *Adjustment of mA and/or kV according to patient size (this includes techniques or standardized protocols for targeted exams where dose is matched to indication/reason for exam; i.e. extremities or head) *Use of iterative reconstruction technique DLP: 723 mGy-cm FINDINGS: Bilateral multifocal patchy deep periventricular white matter and subcortical white matter hypodensities involving centrum semiovale and coronary artery. No acute intracranial hemorrhage, mass effect, midline shift, hydrocephalus or herniation. Harper-white matter differentiation is normal. Posterior cranial fossa contents demonstrated no acute hemorrhage or mass effect. Normal position of the cerebellar tonsils. Sellar/suprasellar region demonstrated no gross masses. Calcified plaques in the cavernous supracavernous segments both ICAs. No increased density in the MCA. Poor pneumatization of the left frontal sinus. No air-fluid levels in the paranasal sinuses. Tympanic cavities and mastoid cells are aerated. CT/CT head/brain wo IV con IMPRESSION: No acute intracranial hemorrhage. 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 Electronically signed by: Kleber Medeiros MD 05/10/2025 03:18 PM [facility] [place]
[2025-05-08 17:52] VITALS: BP 122/63; BP 156/77; PULSE 90; PULSE 94; RESP 18; TEMP 36.4; O2SAT 97; O2SAT 99; BMI 28.0
[2025-05-08 19:09] LABS: MANUAL DIFF FLAG NO
[2025-05-08 19:11] LABS: Hematocrit 35.6 % (42.0-52.0); Hemoglobin 12.8 g/dl (14.0-18.0); Imm Gran Abs Auto 0.03 X10*3/uL (0.00-0.03); Imm Gran Pct Auto 0.5 % (0.0-0.4); Lymphocytes Absolute Auto 1.1 X10*3/uL (1.2-4.9); Mean Corpuscular HGB Conc 36.0 g/dl (31.0-36.0); Mean Corpuscular Hemoglobin 32.0 pg (27.0-33.0); Mean Corpuscular Volume 89.0 fL (80.0-98.0); NRBC Abs Auto 0.000 X10*3/uL (0.0-0.012); NRBC Pct Auto 0.0 /100WBC (0.0-0.2); Platelet Count 145 X10*3/uL (160-400); Red Blood Count 4.00 X10*6/uL (4.60-5.80); White Blood Count 6.4 X10*3/uL (4.8-10.8)
[2025-05-08 19:13] LABS: Appearance Urine Clear; Glucose Urine UA Negative (Negative); PH 6.0 (5.0-9.0); Specific Gravity - Urine <= 1.005 (1.005-1.025); UMIC TRIGGER UACC YES
[2025-05-08 19:29] LABS: Alanine Aminotransferase 64 U/L (0-40); Albumin Level 4.2 g/dL (3.5-5.0); Alkaline Phosphatase 78 U/L (39-117); Aspartate Amino Transferase 62 U/L (5-37); Total Protein 6.6 g/dL (6.5-8.0)
[2025-05-08 19:32] LABS: Alanine Aminotransferase 65 U/L (0-40); Albumin Level 4.2 g/dL (3.5-5.0); Alkaline Phosphatase 76 U/L (39-117); Anion Gap 14 (12-20); Aspartate Amino Transferase 62 U/L (5-37); Blood Urea Nitrogen 11 mg/dL (9-16); Calcium 8.8 mg/dL (8.4-10.2); Carbon Dioxide 23 mmol/L (22-29); Chloride 97 mmol/L (96-108); Creatinine Clr Calc Pharmacy 74.5; Estimated Glomerular Filt Rate > 60; Magnesium 1.2 mg/dL (1.6-2.6); Potassium 3.9 mmol/L (3.3-5.1); Sodium 130 mmol/L (135-145); Total Protein 6.5 g/dL (6.5-8.0)
[2025-05-08] MEDS: Magnesium Sulfate/H2O 2 GM/50 ML PIGGYBACK IV (19:47)
[2025-05-08 19:50] VITALS: BP 124/49; PULSE 72; RESP 11; TEMP 36.5; O2SAT 96
--- NOTE | 2025-05-08 21:45 | PC.NURSE ---
RN assumed care at 1900; pt Axox4, able to follow commands. call ortiz within reach, bed at lowest position.
--- NOTE | 2025-05-08 21:48 | ED.GENADULT ---
HPI - General Adult General Chief complaint: Failure to Thrive Stated complaint: repeat visit for pulling out diaz cath& infection Time Seen by Provider: 05/08/25 19:32 History of Present Illness HPI narrative: Patient is a 75-year-old male presents today with having pain to his lower back. Radiating down to the left thigh. Has a history of left sciatica. Had previous workup in the past including CAT scan x-rays. Has no incontinence. Patient sent in by family for further evaluation. History of recent UTI. History of enlarged prostate. Patient lives alone. No fever no chills. No chest pain or shortness breath no diaphoresis. Denies any alcohol use. Patient is from home. Related Data Home Medications ?Medication ?Instructions ?Recorded ?Confirmed allopurinol 300 mg tablet 300 mg PO DAILY 05/09/25 05/09/25 amlodipine 10 mg tablet 10 mg PO DAILY 05/09/25 05/09/25 atorvastatin 10 mg tablet 10 mg PO DAILY 05/09/25 05/09/25 clonidine HCl 0.1 mg tablet 0.1 mg PO DAILY 05/09/25 05/09/25 lisinopril 5 mg tablet 5 mg PO DAILY 05/09/25 05/09/25 pantoprazole 20 mg tablet,delayed 20 mg PO DAILY 05/09/25 05/09/25 release tramadol 50 mg tablet 50 mg PO Q12H PRN pain 05/09/25 05/09/25 Previous Rx's ?Medication ?Instructions ?Recorded metformin 500 mg tablet 500 mg PO BID #90 tabs 10/29/22 blood-glucose meter #1 ea 11/01/22 cephalexin 500 mg capsule 500 mg PO Q12H #13 caps 05/02/25 cyclobenzaprine 5 mg tablet 5 mg PO TID PRN muscle spasm #20 05/05/25 tabs tamsulosin 0.4 mg capsule 0.4 mg PO BEDTIME #30 caps 05/05/25 Allergies Allergy/AdvReac Type Severity Reaction Status Date / Time Seasonal Allergies Allergy Runny Nose Verified 05/08/25 17:59 Review of Systems Review of Systems: Positive left flank pain going down to the left leg Yes all other systems are reviewed and are negative PMFSH Past Medical History Attestation statement: The following information was validated with the patient. Medical History Diabetes mellitus Cirrhosis Hypertension Alcohol abuse Surgical History S/P TAVR (transcatheter aortic valve replacement) Social History Social History Alcohol intake: current Alcohol intake frequency: holidays/special occasions only Smoked in Last 30 Days: No Use of substances other than those prescribed or required for medical reasons: Yes Substance Use Type: Marijuana Advance Directives: Yes Advance Directives on File: Yes Advance Directives Date on File: 05/06/25 Physical Exam ED Exam Exam: Appearance: Alert. Oriented X3. No acute distress. Eyes: Pupils equal, round and reactive to light. ENT: Pharynx normal. Neck: Normal inspection. Neck supple. No lymph nodes noted. No crepitus CVS: Normal heart rate and rhythm. Pulses normal. Normal S1 and S2 Respiratory: No respiratory distress. Breath sounds normal. No Wheezing. No rales Abdomen: Soft and nontender. No rigidity. No distention. good BS x4. Lower extremity exam: Good sensation in bilateral lower extremity. Reflexes 2+ at patella. No spinal tenderness elicited on palpation. Able to sit on the side of the bed at 90 degrees. Skin: Skin warm and dry. Normal skin color. Normal skin turgor. Extremities: No lower extremity edema. Neurovascular intact to all extremities. No Lacerations. No Rash Neuro: Oriented X 3. No motor deficit. No sensory deficit. Moving all extermities. No slurred speech Vital Signs: Vital Signs - 24 hr 05/10/25 13:04 05/10/25 21:39 Temperature 97.9 F 97.8 F Pulse Rate 81 73 Respiratory Rate 18 18 Blood Pressure 149/65 H 156/72 H Pulse Oximetry 97 97 Oxygen Delivery Method Room Air Room Air BMI result Body Mass Index 28.0 Course Reevaluation(s) Reevaluation #1: Time: 08:38 Date: 05/08/25 Provider: Abiola Altamirano PA-C Patient in physician observation for case management needs. No acute events reported overnight.? No current issues or complaints. VS stable. Currently awaiting evaluation by PT. Will continue to monitor as we await disposition. Reevaluation #2: DONA Nicole Physician observation continued. Uneventful night. Vital signs stable. No complaints from nursing overnight. Med reconciliation reviewed and done. Pending disposition. Will continue to monitor. Reevaluation #3: Patient's family members upset they say that patient appears more altered than usual. I did order head CT which appears to have no acute findings. PT case management to continue care of patient. I do not feel a need for medical admission. Family left. Time: 16:30 Additional Reevaluation(s): 7:01 PM 05/10/2025 (Pilar Ortiz NP): Patient is currently pending PT, case management evaluation. I was contacted by the manager of case that the patient's brother is very concerned. The patient is apparently a daily drinker, and his brother feels as though his affect has been very different since his 4 day stay in the ED. At this time, we will add on ammonia level, he had CT of the head which was normal, LFTs are only mildly elevated in the 60s. Very low clinical suspicion for encephalopathy, though family is requesting additional labs studies. I have added this on, currently pending. 05/11/2025 0835 Mary Gao PA-C ---> Observation continues. Case management continues to follow. 05/11/2025 0852 Mary Gao PA-C ---> Observation care revealed the the patient does not meet medical necessity for hospitalization. Final disposition of discharge to [facility] discussed with the patient and the patient's son. Patient completed observation care at 0852 on 05/11/2025, total time spent in observation care was 2 days, 7 hours, and 48 minutes. Medications Administered Generic Name Dose Route Start Last Admin Trade Name Jose Guadalupe PRN Reason Stop Dose Admin Allopurinol 300 mg 05/10/25 09:00 05/10/25 10:48 Allopurinol 300 Mg Tablet PO Not Given DAILY OKSANA Amlodipine Besylate 10 mg 05/10/25 09:00 05/10/25 08:45 Amlodipine Besylate 10 Mg Tablet PO 10 mg DAILY OKSANA Administration Protocol Atorvastatin Calcium 10 mg 05/10/25 09:00 05/10/25 08:46 Atorvastatin Calcium 10 Mg Tablet PO 10 mg DAILY OKSANA Administration Cephalexin HCl 500 mg 05/08/25 23:45 05/10/25 23:10 Cephalexin 500 Mg Capsule PO 500 mg Q12H OKSANA Administration Clonidine HCl 0.1 mg 05/10/25 09:00 05/10/25 08:46 Clonidine Hcl 0.1 Mg Tablet PO 0.1 mg DAILY OKSANA Administration Protocol Cyclobenzaprine HCl 5 mg 05/08/25 23:37 05/11/25 03:42 Cyclobenzaprine Hcl 5 Mg Tablet PO 5 mg TID PRN Administration Muscle Spasm Glipizide 5 mg 05/09/25 07:30 05/10/25 07:37 Glipizide 5 Mg Tablet PO 5 mg DAILY@0730 OKSANA Administration Lisinopril 5 mg 05/10/25 09:00 05/10/25 08:46 Lisinopril 5 Mg Tablet PO 5 mg DAILY OKSANA Administration Protocol Metformin HCl 500 mg 05/08/25 23:45 05/10/25 21:35 Metformin Hcl 500 Mg Tablet PO 500 mg BID OKSANA Administration Omeprazole 20 mg 05/10/25 08:00 05/11/25 06:50 Omeprazole 20 Mg Capsule.Dr PO 20 mg DAILY@30 OKSANA Administration Tamsulosin HCl 0.4 mg 05/08/25 23:45 05/10/25 21:35 Tamsulosin Hcl 0.4 Mg Capsule PO 0.4 mg BEDTIME OKSANA Administration Discontinued Medications Generic Name Dose Route Start Last Admin Trade Name Freq PRN Reason Stop Dose Admin Acetaminophen 975 mg 05/09/25 02:49 05/09/25 02:55 Acetaminophen 325 Mg Tablet PO 05/09/25 02:50 975 mg ONCE ONE Administration Diazepam 2 mg 05/09/25 02:49 05/09/25 02:56 Diazepam 2 Mg Tablet PO 05/09/25 02:50 2 mg ONCE ONE Administration Diazepam 2 mg 05/11/25 04:17 05/11/25 04:22 Diazepam 2 Mg Tablet PO 05/11/25 04:18 2 mg ONCE ONE Administration Gabapentin 300 mg 05/09/25 02:49 05/09/25 02:56 Gabapentin 300 Mg Capsule PO 05/09/25 02:50 300 mg ONCE ONE Administration Magnesium Sulfate 2 gm in 50 mls @ 150 mls/hr 05/08/25 19:33 05/08/25 20:07 Magnesium Sulfate/H2o IV 05/08/25 19:52 Infused ONCE ONE Infusion Ibuprofen 600 mg 05/10/25 00:14 05/10/25 00:31 Ibuprofen 600 Mg Tablet PO 05/10/25 00:15 600 mg ONCE ONE Administration Medical Decision Making Medical Decision Making [facility] Narrative: Patient has chronic back pain going down to the legs. Patient's urine is grossly negative for infection. Postvoid bladder scan showed 300 cc of urine consistent with urinary retention. Patient pulled out his Diaz accidentally last week. I put back in in 18 Wolof coude Diaz catheter with no complications. Now draining urine. Patient has no bowel urinary incontinence no signs of cauda equinus syndrome. Patient's electrolytes showed a low magnesium it was repleted. White count is normal hemoglobin is 12.8 which is baseline. Patient is electrolytes showed a sodium 132. TSH is normal no evidence for hypo or hyperthyroid urine showed no signs of infection. Discussed with patient. He is having difficulties at home due to his back pain. Will get additional help including physical therapy and case management in a.m.. Patient has multitude of x-ray and CAT scan done recently. lumbar films done on the 4th. CT scan of the abdomen pelvis done on the 3rd. No acute finding was noted pain is similar. Patient is currently pending case management and physical therapy evaluation Differential Diagnosis Differential Diagnoses: The differential diagnosis associated with the presentation includes Consult Healthcare Provider Management of the patient was discussed with: [employer] ( case management and physical therapy) Lab Data [facility] Lab Attestation statement: I reviewed the patient's lab results. 05/08/25 19:05 05/08/25 22:36 Labs: Lab Results 05/08/25 05/08/25 05/08/25 Range/Units 19:02 19:05 19:05 WBC 6.4 (4.8-10.8) X10*3/uL RBC 4.00 L (4.60-5.80) X10*6/uL Hgb 12.8 L (14.0-18.0) g/dl Hct 35.6 L (42.0-52.0) % MCV 89.0 (80.0-98.0) fL MCH 32.0 (27.0-33.0) pg MCHC 36.0 (31.0-36.0) g/dl RDW 12.8 (11.0-16.0) % Plt Count 145 L (160-400) X10*3/uL MPV 9.7 (9.4-12.4) fL Immature Gran % (Auto) 0.5 H (0.0-0.4) % Neut % (Auto) 65.6 (45-73) % Lymph % (Auto) 16.7 L (20-40) % Sussex % (Auto) 13.0 H (2-11) % Eos % (Auto) 3.3 (0-4) % Baso % (Auto) 0.9 (0-2) % Lymph # (Auto) 1.1 L (1.2-4.9) X10*3/uL Sussex # (Auto) 0.8 (0.1-1.2) X10*3/uL Eos # (Auto) 0.2 (0.0-0.4) X10*3/uL Baso # (Auto) 0.1 (0.0-0.2) X10*3/uL Abs Immat Gran (auto) 0.03 (0.00-0.03) X10*3/uL Absolute Neuts (auto) 4.2 (2.0-8.3) x10*3/uL Absolute Nucleated RBC 0.000 (0.0-0.012) X10*3/uL Nucleated RBC % (auto) 0.0 (0.0-0.2) /100WBC Sodium 130 L (135-145) mmol/L Potassium 3.9 (3.3-5.1) mmol/L Chloride 97 (96-108) mmol/L Carbon Dioxide 23 (22-29) mmol/L Anion Gap 14 (12-20) BUN 11 (9-16) mg/dL Creatinine 0.90 (0.5-1.4) mg/dL Estim Creat Clear Calc 74.5 Estimated GFR > 60 POC Glucose (60-115) mg/dL Random Glucose 102 (60-115) mg/dL Calcium 8.8 (8.4-10.2) mg/dL Magnesium 1.2 L* (1.6-2.6) mg/dL Total Bilirubin 0.7 0.6 (0.0-1.0) mg/dL Direct Bilirubin 0.3 (0.0-0.5) mg/dL AST 62 H (5-37) U/L ALT (0-40) U/L Alkaline Phosphatase (39-117) U/L Ammonia (13-55) umol/L Total Protein (6.5-8.0) g/dL Albumin (3.5-5.0) g/dL TSH Urine Color Yellow Urine Appearance Clear Urine pH 6.0 (5.0-9.0) Ur Specific Brogue <= 1.005 (1.005-1.025) Urine Protein Negative (Neg-Trace) mg/dL Urine Glucose (UA) Negative (Negative) mg/dL Urine Ketones Negative (Negative) mg/dL Urine Blood Small (1+) H (Negative) Urine Nitrite Negative (Negative) Ur Leukocyte Esterase Negative (Negative) Urine RBC 0-2 (0-2) /HPF Urine WBC 0-5 (0-5) /HPF Ur Squamous Epith Cells 0-2 (0-2) /HPF Urine Bacteria None Seen (None Seen) Hyaline Casts 0-2 (0-2) /LPF Stl C. cayetanensis PCR (Not Detect.) Stool Rotavirus A PCR (Not Detect.) Stl Adenov F 40/41 PCR (Not Detect.) Stool Astrovirus (PCR) (Not Detect.) Stool Campylobacter PCR (Not Detect.) Stool Cryptosporidium PCR (Not Detect.) Stl Sh Tox Pr E STEC PCR (Not Detect.) Stool E coli O157 PCR (Not Detect.) Stl Enterotoxigenic E PCR (Not Detect.) Stool EPEC (PCR) (Not Detect.) Stool EAEC (PCR) (Not Detect.) Stl E. histolytica PCR (Not Detect.) Stool Giardia Lamblia PCR (Not Detect.) Stl P. shigelloides PCR (Not Detect.) Stool Salmonella PCR (Not Detect.) Stool Sapovirus (PCR) (Not Detect.) Stl Shigella/EIEC PCR (Not Detect.) St Y.enterocolitica PCR (Not Detect.) Stool Vibrio (PCR) (Not Detect.) Stl Vibrio cholerae PCR (Not Detect.) Stl Norovirus GI/GII PCR (Not Detect.) C. difficile Tox B Gene (Negative) 05/08/25 05/08/25 05/08/25 Range/Units 19:05 19:05 19:05 WBC (4.8-10.8) X10*3/uL RBC (4.60-5.80) X10*6/uL Hgb (14.0-18.0) g/dl Hct (42.0-52.0) % MCV (80.0-98.0) fL MCH (27.0-33.0) pg MCHC (31.0-36.0) g/dl RDW (11.0-16.0) % Plt Count (160-400) X10*3/uL MPV (9.4-12.4) fL Immature Gran % (Auto) (0.0-0.4) % Neut % (Auto) (45-73) % Lymph % (Auto) (20-40) % Sussex % (Auto) (2-11) % Eos % (Auto) (0-4) % Baso % (Auto) (0-2) % Lymph # (Auto) (1.2-4.9) X10*3/uL [place] # (Auto) (0.1-1.2) X10*3/uL Eos # (Auto) (0.0-0.4) X10*3/uL Baso # (Auto) (0.0-0.2) X10*3/uL Abs Immat Gran (auto) (0.00-0.03) X10*3/uL Absolute Neuts (auto) (2.0-8.3) x10*3/uL Absolute Nucleated RBC (0.0-0.012) X10*3/uL Nucleated RBC % (auto) (0.0-0.2) /100WBC Sodium (135-145) mmol/L Potassium (3.3-5.1) mmol/L Chloride (96-108) mmol/L Carbon Dioxide (22-29) mmol/L Anion Gap (12-20) BUN (9-16) mg/dL Creatinine (0.5-1.4) mg/dL Estim Creat Clear Calc Estimated GFR POC Glucose (60-115) mg/dL Random Glucose (60-115) mg/dL Calcium (8.4-10.2) mg/dL Magnesium (1.6-2.6) mg/dL Total Bilirubin (0.0-1.0) mg/dL Direct Bilirubin (0.0-0.5) mg/dL AST 62 H (5-37) U/L ALT 65 H 64 H (0-40) U/L Alkaline Phosphatase 76 78 (39-117) U/L Ammonia (13-55) umol/L Total Protein 6.5 (6.5-8.0) g/dL Albumin (3.5-5.0) g/dL TSH Urine Color Urine Appearance Urine pH (5.0-9.0) Ur Specific Brogue (1.005-1.025) Urine Protein (Neg-Trace) mg/dL Urine Glucose (UA) (Negative) mg/dL Urine Ketones (Negative) mg/dL Urine Blood (Negative) Urine Nitrite (Negative) Ur Leukocyte Esterase (Negative) Urine RBC (0-2) /HPF Urine WBC (0-5) /HPF Ur Squamous Epith Cells (0-2) /HPF Urine Bacteria (None Seen) Hyaline Casts (0-2) /LPF Stl C. cayetanensis PCR (Not Detect.) Stool Rotavirus A PCR (Not Detect.) Stl Adenov F 40/41 PCR (Not Detect.) Stool Astrovirus (PCR) (Not Detect.) Stool Campylobacter PCR (Not Detect.) Stool Cryptosporidium PCR (Not Detect.) Stl Sh Tox Pr E STEC PCR (Not Detect.) Stool E coli O157 PCR (Not Detect.) Stl Enterotoxigenic E PCR (Not Detect.) Stool EPEC (PCR) (Not Detect.) Stool EAEC (PCR) (Not Detect.) Stl E. histolytica PCR (Not Detect.) Stool Giardia Lamblia PCR (Not Detect.) Stl P. shigelloides PCR (Not Detect.) Stool Salmonella PCR (Not Detect.) Stool Sapovirus (PCR) (Not Detect.) Stl Shigella/EIEC PCR (Not Detect.) St Y.enterocolitica PCR (Not Detect.) Stool Vibrio (PCR) (Not Detect.) Stl Vibrio cholerae PCR (Not Detect.) Stl Norovirus GI/GII PCR (Not Detect.) C. difficile Tox B Gene (Negative) 05/08/25 05/08/25 05/08/25 Range/Units 19:05 19:05 22:36 WBC (4.8-10.8) X10*3/uL RBC (4.60-5.80) X10*6/uL Hgb (14.0-18.0) g/dl Hct (42.0-52.0) % MCV (80.0-98.0) fL MCH (27.0-33.0) pg MCHC (31.0-36.0) g/dl RDW (11.0-16.0) % Plt Count (160-400) X10*3/uL MPV (9.4-12.4) fL Immature Gran % (Auto) (0.0-0.4) % Neut % (Auto) (45-73) % Lymph % (Auto) (20-40) % [place] % (Auto) (2-11) % Eos % (Auto) (0-4) % Baso % (Auto) (0-2) % Lymph # (Auto) (1.2-4.9) X10*3/uL [place] # (Auto) (0.1-1.2) X10*3/uL Eos # (Auto) (0.0-0.4) X10*3/uL Baso # (Auto) (0.0-0.2) X10*3/uL Abs Immat Gran (auto) (0.00-0.03) X10*3/uL Absolute Neuts (auto) (2.0-8.3) x10*3/uL Absolute Nucleated RBC (0.0-0.012) X10*3/uL Nucleated RBC % (auto) (0.0-0.2) /100WBC Sodium 132 L (135-145) mmol/L Potassium 3.8 (3.3-5.1) mmol/L Chloride 99 (96-108) mmol/L Carbon Dioxide 25 (22-29) mmol/L Anion Gap 12 (12-20) BUN 10 (9-16) mg/dL Creatinine 0.88 (0.5-1.4) mg/dL Estim Creat Clear Calc 76.1 Estimated GFR > 60 POC Glucose (60-115) mg/dL Random Glucose 108 (60-115) mg/dL Calcium 9.3 (8.4-10.2) mg/dL Magnesium 1.8 (1.6-2.6) mg/dL Total Bilirubin (0.0-1.0) mg/dL Direct Bilirubin (0.0-0.5) mg/dL AST (5-37) U/L ALT (0-40) U/L Alkaline Phosphatase (39-117) U/L Ammonia (13-55) umol/L Total Protein 6.6 (6.5-8.0) g/dL Albumin 4.2 4.2 (3.5-5.0) g/dL TSH Cancelled 3.02 Urine Color Urine Appearance Urine pH (5.0-9.0) Ur Specific Brogue (1.005-1.025) Urine Protein (Neg-Trace) mg/dL Urine Glucose (UA) (Negative) mg/dL Urine Ketones (Negative) mg/dL Urine Blood (Negative) Urine Nitrite (Negative) Ur Leukocyte Esterase (Negative) Urine RBC (0-2) /HPF Urine WBC (0-5) /HPF Ur Squamous Epith Cells (0-2) /HPF Urine Bacteria (None Seen) Hyaline Casts (0-2) /LPF Stl C. cayetanensis PCR (Not Detect.) Stool Rotavirus A PCR (Not Detect.) Stl Adenov F 40/41 PCR (Not Detect.) Stool Astrovirus (PCR) (Not Detect.) Stool Campylobacter PCR (Not Detect.) Stool Cryptosporidium PCR (Not Detect.) Stl Sh Tox Pr E STEC PCR (Not Detect.) Stool E coli O157 PCR (Not Detect.) Stl Enterotoxigenic E PCR (Not Detect.) Stool EPEC (PCR) (Not Detect.) Stool EAEC (PCR) (Not Detect.) Stl E. histolytica PCR (Not Detect.) Stool Giardia Lamblia PCR (Not Detect.) Stl P. shigelloides PCR (Not Detect.) Stool Salmonella PCR (Not Detect.) Stool Sapovirus (PCR) (Not Detect.) Stl Shigella/EIEC PCR (Not Detect.) St Y.enterocolitica PCR (Not Detect.) Stool Vibrio (PCR) (Not Detect.) Stl Vibrio cholerae PCR (Not Detect.) Stl Norovirus GI/GII PCR (Not Detect.) C. difficile Tox B Gene (Negative) 05/09/25 05/09/25 05/10/25 Range/Units 15:13 21:27 19:12 WBC (4.8-10.8) X10*3/uL RBC (4.60-5.80) X10*6/uL Hgb (14.0-18.0) g/dl Hct (42.0-52.0) % MCV (80.0-98.0) fL MCH (27.0-33.0) pg MCHC (31.0-36.0) g/dl RDW (11.0-16.0) % Plt Count (160-400) X10*3/uL MPV (9.4-12.4) fL Immature Gran % (Auto) (0.0-0.4) % Neut % (Auto) (45-73) % Lymph % (Auto) (20-40) % [place] % (Auto) (2-11) % Eos % (Auto) (0-4) % Baso % (Auto) (0-2) % Lymph # (Auto) (1.2-4.9) X10*3/uL [place] # (Auto) (0.1-1.2) X10*3/uL Eos # (Auto) (0.0-0.4) X10*3/uL Baso # (Auto) (0.0-0.2) X10*3/uL Abs Immat Gran (auto) (0.00-0.03) X10*3/uL Absolute Neuts (auto) (2.0-8.3) x10*3/uL Absolute Nucleated RBC (0.0-0.012) X10*3/uL Nucleated RBC % (auto) (0.0-0.2) /100WBC Sodium (135-145) mmol/L Potassium (3.3-5.1) mmol/L Chloride (96-108) mmol/L Carbon Dioxide (22-29) mmol/L Anion Gap (12-20) BUN (9-16) mg/dL Creatinine (0.5-1.4) mg/dL Estim Creat Clear Calc Estimated GFR POC Glucose 115 (60-115) mg/dL Random Glucose (60-115) mg/dL Calcium (8.4-10.2) mg/dL Magnesium (1.6-2.6) mg/dL Total Bilirubin (0.0-1.0) mg/dL Direct Bilirubin (0.0-0.5) mg/dL AST (5-37) U/L ALT (0-40) U/L Alkaline Phosphatase (39-117) U/L Ammonia 30 (13-55) umol/L Total Protein (6.5-8.0) g/dL Albumin (3.5-5.0) g/dL TSH Urine Color Urine Appearance Urine pH (5.0-9.0) Ur Specific Brogue (1.005-1.025) Urine Protein (Neg-Trace) mg/dL Urine Glucose (UA) (Negative) mg/dL Urine Ketones (Negative) mg/dL Urine Blood (Negative) Urine Nitrite (Negative) Ur Leukocyte Esterase (Negative) Urine RBC (0-2) /HPF Urine WBC (0-5) /HPF Ur Squamous Epith Cells (0-2) /HPF Urine Bacteria (None Seen) Hyaline Casts (0-2) /LPF Stl C. cayetanensis PCR Not Detected (Not Detect.) Stool Rotavirus A PCR Not Detected (Not Detect.) Stl Adenov F 40/41 PCR Not Detected (Not Detect.) Stool Astrovirus (PCR) Not Detected (Not Detect.) Stool Campylobacter PCR Not Detected (Not Detect.) Stool Cryptosporidium PCR Not Detected (Not Detect.) Stl Sh Tox Pr E STEC PCR Not Detected (Not Detect.) Stool E coli O157 PCR Not applicable (Not Detect.) Stl Enterotoxigenic E PCR Not Detected (Not Detect.) Stool EPEC (PCR) Not Detected (Not Detect.) Stool EAEC (PCR) Not Detected (Not Detect.) Stl E. histolytica PCR Not Detected (Not Detect.) Stool Giardia Lamblia PCR Not Detected (Not Detect.) Stl P. shigelloides PCR Not Detected (Not Detect.) Stool Salmonella PCR Not Detected (Not Detect.) Stool Sapovirus (PCR) Not Detected (Not Detect.) Stl Shigella/EIEC PCR Not Detected (Not Detect.) St Y.enterocolitica PCR Not Detected (Not Detect.) Stool Vibrio (PCR) Not Detected (Not Detect.) Stl Vibrio cholerae PCR Not Detected (Not Detect.) Stl Norovirus GI/GII PCR Not Detected (Not Detect.) C. difficile Tox B Gene NEGATIVE (Negative) External Record Review External record reviewed: Inpatient record Social Determinants Patient?s care significantly limited by Social Determinants of Health including: Inadequate housing, Problems related to primary support group and Other Social Determinant of Health Discharge Plan Discharge Clinical Impression: Diabetes mellitus, Acute urinary retention, Sciatica Prescriptions: No Action metformin 500 mg tablet 500 mg PO BID Qty: 90 0RF Rx Instructions: Take 1 tablet of metformin daily for 2 weeks, then increase it to 2 tablets daily (DME) blood-glucose meter Kit See Rx Instructions .Route Qty: 1 0RF Rx Instructions: As directed cephalexin 500 mg capsule 500 mg PO Q12H Qty: 13 0RF tamsulosin 0.4 mg capsule 0.4 mg PO BEDTIME Qty: 30 0RF cyclobenzaprine 5 mg tablet 5 mg PO TID PRN (Reason: muscle spasm) Qty: 20 0RF clonidine HCl 0.1 mg tablet 0.1 mg PO DAILY atorvastatin 10 mg tablet 10 mg PO DAILY tramadol 50 mg tablet 50 mg PO Q12H PRN (Reason: pain) pantoprazole 20 mg tablet,delayed release (DR/EC) 20 mg PO DAILY amlodipine 10 mg tablet 10 mg PO DAILY allopurinol 300 mg tablet 300 mg PO DAILY lisinopril 5 mg tablet 5 mg PO DAILY Referrals: Noemi D[facility]az on [place] [Outside] Print Language: [place] African
[2025-05-08 22:29] VITALS: BP 157/71; PULSE 90; RESP 18; TEMP 36.7; O2SAT 97
[2025-05-08 23:01] LABS: Anion Gap 12 (12-20); Blood Urea Nitrogen 10 mg/dL (9-16); Calcium 9.3 mg/dL (8.4-10.2); Carbon Dioxide 25 mmol/L (22-29); Chloride 99 mmol/L (96-108); Creatinine Clr Calc Pharmacy 76.1; Estimated Glomerular Filt Rate > 60; Magnesium 1.8 mg/dL (1.6-2.6); Potassium 3.8 mmol/L (3.3-5.1); Sodium 132 mmol/L (135-145)
--- NOTE | 2025-05-08 23:37 | PC.NURSE ---
unable to complete med rec with pharmacy as they are closed. Pt unsure what he takes. Per , Med rec completed by med history on chart.
[2025-05-09 02:49] VITALS: BP 168/63; PULSE 66; RESP 24
[2025-05-09 08:55] VITALS: BP 161/72; PULSE 79; RESP 18; TEMP 36.2; O2SAT 95
[2025-05-09 09:36] VITALS: BP 174/63; O2SAT 96
--- NOTE | 2025-05-09 10:15 | MHC.CM.ED ---
Addendum entered by No Nevarez RN 05/09/25 11:34: PATIENT DOES NOT HAVE A SNF BENEFIT AND WOULD NEED TO PAY PRIVATELY FOR A BED OFFER AT SNF. PATIENT DOES NOT HAVE THE FUNDS REFERRAL PLACED TO THE THREE ACUTES IN HOPES OF SECURING A BED OFFER. Original Note: CASE MANAGEMENT MET WITH PATIENT WHO IS AOX4 AND ABLE TO ANSWER ALL QUESTIONS APPROPRIATELY HE IS AGREEABLE TO STR PER P.T. RECOMMENDATIONS AND CHOOSES [facility] FOR EASE OF FAMILY ACCESS. PATIENT DOES NOT APPEARS TO HAVE A QUALIFYING STAY UNDER MEDICARE. REQUEST FOR REVIEW OF PATIENT'S SECONDARY INSURANCE TO ASK ABOUT THIS HAS BEEN NOW SENT THROUGH [facility] ON FILE AND SENT TO FACILITY. THIS MEASURER MACHINE SPOKE WITH [id number], EMMETT (WITH PATIENT PERMISSION) WHO IS AGREEABLE TO CARE FOR PATIENT'S CAT IN THE EVENT HE IS OFFERED A BED. PATIENT GIVES PERMISSION FOR STAFF TO SPEAK TO EMMETT. CONTACT NUMBER [phone] CM FOLLOWING
--- NOTE | 2025-05-09 10:16 | PC.NURSE ---
Assumed care of patient at 0645. Patient alert and oriented x4. No confusion noted at this time. Patient worked with PT and noticed generalized weakness and difficulty for patient to stand. Plan to continue PT/CM. VSS.
--- NOTE | 2025-05-09 14:47 | PHA.MEDREC ---
Addendum entered by Shiv Garcia RPh 05/09/25 15:03: Review by [facility] Original Note: Pharmacy Consult ? Medication Reconciliation Pharmacy reviewed med rec done by nursing. Spoke with pt and family at bedside and they had Rx bottles on hand that we used to confirm pt med rec. Pt taking Cephalexin 500mg 6 day regimen and has one day left of that according to family and nursing had confirmed Glipizide 5mg once daily but pt nor family think pt is taking that med and is taking Metformin; took off med rec since we have no claims for Glipizide.
--- NOTE | 2025-05-09 14:56 | MHC.CM.ED ---
[facility] REVIEWING FOR BED OFFER. PATIENT'S FAMILY IS WILLING OT TRAVEL TO [place] AND ALSO ASSIST WITH PATIENT'S CAT WHILE HE IS AWAY, IF HE IS TO GET A BED OFFER.
[2025-05-09 15:44] VITALS: BP 139/79; PULSE 99; RESP 17; O2SAT 97
--- NOTE | 2025-05-09 15:52 | PC.NURSE ---
patient noted to have 5 watery stools, c diff and gi panel sent to lab. ED provider notified.
[2025-05-09 17:25] LABS: CDiff Gene PCR NEGATIVE (Negative)
[2025-05-09 17:59] VITALS: BP 164/76; PULSE 93; RESP 22; O2SAT 94
--- NOTE | 2025-05-09 19:35 | PC.NURSE ---
Assumed care of pt, presents to the ED for bilateral leg weakness and left siatica pain, pt has a chronic diaz due to urine retention and his enlarged prostate pt is pending Physical therapy and case management in the AM, aaox4, nad currently
[2025-05-09 21:40] LABS: Glucose, Whole Blood 115 mg/dL (60-115)
[2025-05-10] VITALS (7 sets, daily range): BP systolic 149–186; BP diastolic 65–100; PULSE 73–108; RESP 14–18; TEMP 36.6–36.7; O2SAT 97–100
--- NOTE | 2025-05-10 08:11 | PC.NURSE ---
camera set up for pt, due to confusion and precoccupation with diaz line
[2025-05-10 09:25] LABS: E. coli EAEC Not Detected (Not Detect.); E. coli EPEC Not Detected (Not Detect.); E. coli ETEC Not Detected (Not Detect.); E. coli STEC Not Detected (Not Detect.); Shigella sp./EIEC Not Detected (Not Detect.)
--- NOTE | 2025-05-10 11:10 | PC.NURSE ---
Pt took all meds with no issue. Hypertensive this am with no BP meds ordered despite being confirmed on med rec. Minna CARCAMO placing orders from home to address BP. Pt did not have any other complaints, pleasantly confused, able to follow direction. Pt now sleeping, camera remains on.
--- NOTE | 2025-05-10 12:24 | MHC.CM.ED ---
Addendum entered by Marie Dominguez 05/10/25 14:50: Bed offers discussed with Deepali. Deepali will speak with patient and brother, Rommel and get back to . Original Note: Patient remains in ER. No acute rehabs are able to offer a bed. Attempted to speak with patient. Patient currently sleeping. Spoke with patient's brother, Rommel, via telephone at [phone]. Above information explained to Rommel. Returning home with [facility] vs privately paying for STR discussed. Jay became upset not understanding why patient will not be able to go to STR. Explained Medicare inpatient level of care and qualfying hospital stay rule. Rommel stated he had to speak to his family and will get back to . Received telephone call from Deepali, Rommel's girlfriend. Above information explained to her. Deepali is willing to privately pay for 2 weeks respite care so that she can get patient's apartment cleaned up. SNF referral will be broadcasted within 15 miles. Bed offers with prices will be discussed. Continue to monitor for d/c needs.
--- NOTE | 2025-05-10 19:01 | PC.NURSE ---
Family at bedside. Brother expressing concerns regarding patient not qualifying for admission or STR with insurance coverage. Marie Dominguez (PRIYA) came to bedside and spoke with patient along with RN Reynaldo Wood. Sejal Gonsalves RN currently at bedside speak with family regarding updated plan. Camera remains in place, no acute distress at this time. Care ongoing by this RN.
[2025-05-10 19:27] LABS: Ammonia 30 umol/L (13-55)
--- NOTE | 2025-05-10 22:23 | MHC.CM.ED ---
Addendum entered by Gloria Martinez 05/10/25 22:31: Provider and primary RN aware. Addendum entered by Gloria Martinez 05/10/25 22:30: Family has chosen [facility]. Facility will reach out to them. Probable discharge to facility 05/11. Original Note: CM spoke with patient and with brother/HCP Jarett. Plan is private pay for 2 weeks at [facility]. Given information on home care agencies for when patient returns home. Pt has some funds. If needed, may be able to pay for about 4-6 months of LTC. Family not ready to choose LTC, will try home help first after STR. Given financial services pamphlet and CM card for assistance.
--- NOTE | 2025-05-11 08:54 | MHC.CM.ED ---
Patient remains in ER. [facility] [address] [facility] with [facility]. Patient, Mathew RN and Mary CARCAMO aware. Patient requested CM not call his brother Rommel because he is sleeping. T/W spoke with Deepali via telephone at [phone]. Deepali aware and will make sure Rommel is aware. Continue to monitor for d/c needs.
--- NOTE | 2025-05-11 09:17 | PC.NURSE ---
Patient medicated per the MAR. Patient took medications whole with water. Patient tolerated well. Patient educated to use call light. Patient resting quietly. Call ortiz placed within reach. Camera in place for safety. Bed alarm on.
[2025-05-11 09:24] VITALS: BP 150/73; PULSE 89; RESP 16; TEMP 36.6; O2SAT 94
--- NOTE | 2025-05-11 11:33 | PC.NURSE ---
Patient alert only to self, thinks he is in an apartment. Spoke with daughter on the phone, daughter patient is confused
--- NOTE | 2025-05-11 11:45 | PC.NURSE ---
bladder scanned for 13mls prior to transport
== END 2025-05-11 11:45 ==
PROVIDERS: Emergency Medicine Emergency Medical Services; Nurse Practitioner; Emergency Provider Emergency Medicine; PCP Family Medicine
DX: R33.9 Retention of urine, unspecified (principal); R62.7 Adult failure to thrive; E11.9 Type 2 diabetes mellitus without complications; I10 Essential (primary) hypertension; G89.29 Other chronic pain; R26.81 Unsteadiness on feet; R44.3 Hallucinations, unspecified; D81.89 Other combined immunodeficiencies; M79.605 Pain in left leg; R19.7 Diarrhea, unspecified; Z79.899 Other long term (current) drug therapy; Z87.440 Personal history of urinary (tract) infections; Z87.39 Personal history of other diseases of the musculoskeletal system and connective tissue; Z79.84 Long term (current) use of oral hypoglycemic drugs; Z51.81 Encounter for therapeutic drug level monitoring
CPT/HCPCS: 36415; 51798; 70450; 80048; 80053; 80076; 81001; 82140; 82947; 83735; 84443; 85025; 87493; 87507; 97162; 99285; J3475

== ENCOUNTER → 2025-05-10 14:13 | Outpatient (BNV) | payer MEDICARE, OTHER, SELFPAY | PROVIDERS: Emergency Provider Emergency Medicine; PCP Family Medicine; Visit Provider Radiology Diagnostic Radiology | DX: I67.2 Cerebral atherosclerosis (principal); R90.82 White matter disease, unspecified | CPT/HCPCS: 70450 ==

== ENCOUNTER 2025-05-24 08:43 | Outpatient (AMB) | payer MEDICARE, OTHER, SELFPAY ==
--- NOTE | 2025-05-24 09:04 | MHC.OFFVIS ---
Intake Visit Reasons: urinary retention (VT) SET Intake Note: New Patient is present for Voiding Trial Suh Removed Urology Rx:Allopurinol, Tamsulosin PVR:0mls Blood Thinners:none No abx Allergy Imaging completed: Scrotum US05/02/25 , Abd /Pelvis CT 05/04/25 Medicaid Billing Clerk Required: No Accompanied by: CARD CUTTER Allergies Seasonal Allergies Allergy (Verified 05/24/25 09:06) Runny Nose HPI Comments Details: Haven is a pleasant male. Accompanied by his brother. He is a patient of . He seen for the following urologic condition - lower urinary tract symptoms Urinary retention PVR [address] scan - There is moderate bladder dilatation with mild nonspecific diffuse bladder wall thickening. On tamsulosin Start finasteride Six-month follow-up [facility] Medical History Diabetes mellitus Cirrhosis Hypertension Alcohol abuse Surgical History S/P TAVR (transcatheter aortic valve replacement) Social History Alcohol intake: current Alcohol intake frequency: holidays/special occasions only Substance Use Type: Marijuana Advance Directives Date on File: 05/06/25 Review of Systems Const Denies chills and Denies fever(s) Card Reports no additional complaints and Denies syncope Resp Denies cough GI Denies abdominal pain and Denies heartburn Reports as per HPI and Denies change in libido Neuro Denies syncope Psych Denies change in libido Endo Denies change in libido Physical Exam Const General: cooperative, healthy appearing, comfortable and no acute distress Orientation/consciousness: patient oriented x3 HEENT Face and sinus: Yes normal facial exam Mouth: moist mucous membranes Neck Neck: Yes normal visual inspection, Yes full ROM and Yes trachea midline Chest Chest palpation & inspection: normal inspection of the chest Resp Effort & Inspection: normal respiratory effort, able to speak in complete sentences and no respiratory distress GI Inspection: Yes normal to inspection Back/Spine/Pelvis Cervical Spine: normal cervical lordosis Thoracic/Lumbar Spine: thoracic and lumbar spine normal to inspection Skin General skin exam: no rashes or lesions noted Neuro General: patient oriented x3, gait normal, tone normal and moves all extremities Extrem General: Yes normal to inspection and Yes capillary refill normal Office Procedures Post Void Residual Post Residual Void Post Void Residual (PVR): 0 [id number] Void Residual by ultrasound Results AMB Urinalysis, Automated UA Leukoctes 0 Drea/uL [facility] on 05/24/25 09:16 UA Nitrite Negative Last Edit by [facility] on 05/24/25 09:16 UA Urobilinogen 0.2 mg/dL Last Edit by [facility], [facility] on 05/24/25 09:16 UA Protein 0 mg/dL Last Edit by [facility] on 05/24/25 09:16 UA pH 6.5 Last Edit by [facility], [facility] on 05/24/25 09:16 UA Blood 0 Sriram/uL Last Edit by [facility], [facility] on 05/24/25 09:16 UA Specific Tracy 1.010 Last Edit by [facility], [facility] on 05/24/25 09:16 UA Ketone Negative Last Edit by [facility], [facility] on 05/24/25 09:16 UA Bilirubin 0 mg/dL Last Edit by [facility], [facility] on 05/24/25 09:16 UA Glucose 0 mg/dL Last Edit by [facility], [facility] on 05/24/25 09:16 Results Reviewed Results Reviewed: Laboratory Last Values Urine pH (Auto) 6.5 05/24/25 09:15 Specific Tracy (Auto) 1.010 05/24/25 09:15 Urine Protein (Auto) 0 mg/dL 05/24/25 09:15 Glucose (UA)(Auto) 0 mg/dL 05/24/25 09:15 Urine Ketones (Auto) Negative 05/24/25 09:15 Urine Blood (Auto) 0 Sriram/uL 05/24/25 09:15 Urine Nitrite (Auto) Negative 05/24/25 09:15 Urine Bilirubin (Auto) 0 mg/dL 05/24/25 09:15 Urine Urobilinogen (Auto) 0.2 mg/dL 05/24/25 09:15 Leukocyte Esterase (Auto) 0 Drea/uL 05/24/25 09:15 Assessment & Plan Assessment & Plan (1) Bladder wall thickening: Code(s): N32.89 - Other specified disorders of bladder Category: Medical (2) Urinary retention with incomplete bladder emptying: Code(s): R33.9 - Retention of urine, unspecified Category: Medical Plan Start finasteride Refill tamsulosin Six-month follow-up PVR office Orders: Orders AMB Urinalysis Automated Today N13.8 - Other obstructive and reflux uropathy, N40.1 - Benign prostatic hyperplasia with lower urinary tract symptoms AMB Post Void Residual by ultrasound Today N40.1 - Benign prostatic hyperplasia with lower urinary tract symptoms Medications: New finasteride 5 mg PO DAILY 90 tabs 1RF 90 days R33.9 - Retention of urine, unspecified Changed From tamsulosin 0.4 mg PO BEDTIME 30 caps 0RF R33.9 - Retention of urine, unspecified To tamsulosin 0.4 mg PO BEDTIME 90 caps 1RF 90 days R33.9 - Retention of urine, unspecified Patient Instructions: This note is constructed using voice recognition software. While every effort has been made to ensure accuracy full time staff interpreter errors may have been included. Imaging studies, laboratory and physical exam results were discussed and reviewed in detail. No major barriers to patient understanding were identified. An opportunity to ask questions regarding the treatment plan was provided. All questions were answered. The patient expressed understanding and agreement with the above treatment plan. The patient is aware they should contact our office by phone for worsening of their current condition or the appearance of new urologic symptoms. Compliance is encouraged with any medications and followup testing that is ordered. It is a privilege to participate in the urologic care of your patient. If you have any questions or concerns regarding treatment for the above conditions, or other urologic issues, please do not hesitate to contact me. The office telephone contact is [phone]. Sincerely, Dr Magdaleno Camacho MD, [facility] Compassionate Specialist Care for the Genitourinary System Coding Level of Care Code New Pt Level 4 (17222) Diagnoses Bladder wall thickening N32.89 Urinary retention with incomplete bladder emptying R33.9 CPT Codes Post Residual Void - PVR CPT Code: [id number] Void Residual by ultrasound ([id number])
== END 2025-05-24 09:43 | disposition home or self-care (01) ==
LOC: HO.HUSH 08:44
PROVIDERS: PCP Family Medicine; Visit Provider Urology
DX: N32.89 Other specified disorders of bladder (principal); R33.9 Retention of urine, unspecified; N40.1 Benign prostatic hyperplasia with lower urinary tract symptoms; N13.8 Other obstructive and reflux uropathy
CPT/HCPCS: 99204

== ENCOUNTER → 2025-05-24 08:43 | Outpatient (BNVA) | payer MEDICARE, OTHER, SELFPAY | PROVIDERS: PCP Family Medicine; Visit Provider Urology | DX: N32.89 Other specified disorders of bladder (principal); R33.9 Retention of urine, unspecified | CPT/HCPCS: 51798; 81003; 99202 ==